=== PATIENT | male | born 1945 | race African-American/Black ===

== ENCOUNTER 2017-06-20 01:27 | Emergency (ER) | payer MEDICARE, OTHER ==
[2017-06-20 01:40] VITALS: BP 174/74; PULSE 72; RESP 16; O2SAT 98
[2017-06-20] MEDS ORDERED: HYDR-3799 PO (01:49)
[2017-06-20] MEDS ORDERED: ALPR0.25 PO (01:49)
[2017-06-20] MEDS ORDERED: METF500T PO (01:49)
[2017-06-20] MEDS ORDERED: HALD50IN IM (01:49)
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
[2017-06-20 03:08] LABS: AUTOMATED NEUTROPHIL # 5.6 TH/MM3 (1.8-7.7); BASOPHIL % 0.6 % (0.0-2.0); EOSINOPHIL # 0.1 TH/MM3 (0-0.4); EOSINOPHIL % 1.8 % (0.0-4.0); HEMATOCRIT 33.9 % (39.0-51.0); HEMO FLAGS DIFF FINAL; LYMPH % 22.8 % (9.0-44.0); LYMPHOCYTE # 1.9 TH/MM3 (1.0-4.8); MEAN CELL VOLUME 75.4 FL (80.0-100.0); MEAN CORPUSCULAR HEMOGLOBIN 24.3 PG (27.0-34.0); MEAN CORPUSCULAR HGB CONC 32.2 % (32.0-36.0); NEUT % 66.8 % (16.0-70.0); PLATELET COUNT 242 TH/MM3 (150-450); RED BLOOD COUNT 4.49 MIL/MM3 (4.50-5.90); RED CELL DISTRIBUTION WIDTH 16.7 % (11.6-17.2); WHITE BLOOD COUNT 8.3 TH/MM3 (4.0-11.0)
[2017-06-20 03:14] LABS: ALT (GPT) 23 U/L (12-78); ANION GAP 6 MEQ/L (5-15); AST (GOT) 17 U/L (15-37); BICARBONATE 27.3 MEQ/L (21.0-32.0); BLOOD UREA NITROGEN 17 MG/DL (7-18); CHLORIDE 102 MEQ/L (98-107); GLOMERULAR FILTRATION RATE 61 ML/MIN (>89); POTASSIUM 3.9 MEQ/L (3.5-5.1); SODIUM (NA) 135 MEQ/L (136-145)
[2017-06-20 03:16] LABS: ALKALINE PHOSPHATASE 83 U/L (45-117); TOTAL BILIRUBIN ADULT 0.5 MG/DL (0.2-1.0)
[2017-06-20 03:27] LABS: PROTHROMBIN TIME - PATIENT 11.4 SEC (9.8-11.6)
[2017-06-20 06:03] VITALS: BP 168/79; PULSE 67; RESP 16; O2SAT 100
[2017-06-20 06:27] LABS: BLOOD, URINE NEG (NEG); COMMENT (UR) CULT NOT INDICATED; CULTURE IF INDICATED CULT NOT INDICATED; GLUCOSE,URINE NEG (NEG); HYALINE CAST, URINE 1 /lpf (RARE); KETONE, URINE NEG (NEG); MUCUS URINE FEW /lpf (OCC); NITRITE,URINE NEG (NEG); SQUAMOUS EPITHELIAL CELL URINE <1 /hpf (0-5); URINE COLOR YELLOW (YELLW/STRAW)
[2017-06-20 08:10] VITALS: BP 163/90; PULSE 60; RESP 20; O2SAT 100
[2017-06-20] MEDS: metFORMIN HCL 500 MG TAB PO SCH ×2 (10:08→18:00)
[2017-06-20] MEDS: hydrALAZINE HCL 25 MG TAB PO SCH ×3 (10:08→22:00)
[2017-06-20 14:07] VITALS: BP 153/62; PULSE 87; RESP 18; O2SAT 97
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
[2017-06-20 16:42] VITALS: BP 144/64; PULSE 89; RESP 16; O2SAT 98
[2017-06-21] MEDS ORDERED: LORazepam 2 MG/ML VIAL IM ONE
[2017-06-21 05:23] VITALS: BP 159/72; PULSE 83; RESP 16; O2SAT 97
[2017-06-21] MEDS: metFORMIN HCL 500 MG TAB PO SCH ×2 (09:00→18:00)
[2017-06-21] MEDS: hydrALAZINE HCL 25 MG TAB PO SCH (10:38)
[2017-06-21 13:30] VITALS: BP 159/89; PULSE 89; RESP 16; O2SAT 100
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
[2017-06-21 17:23] VITALS: BP 172/98; PULSE 82; RESP 16
--- NOTE | 2017-06-21 19:10 | PD ---
Physical Exam Date Seen by Provider: Jun 21, 2017 Time Seen by Provider: 19:09 Narrative Patient's Gipson act has been lifted by the psychiatrist. As per them most of his symptoms are from dementia. Currently awaiting for family to come and pick him up and take him back home. Data Data Last Documented VS Orders Orders Complete Blood Count With Diff (06/20/17 02:11) Comprehensive Metabolic Panel (06/20/17 02:11) Psych Screen (06/20/17 02:11) Drug Screen, Random Urine (06/20/17 02:11) Act Partial Throm Time (Ptt) (06/20/17 02:12) Prothrombin Time / Inr (Pt) (06/20/17 02:12) Urinalysis - C+S If Indicated (06/20/17 02:12) Hydralazine (Apresoline) (06/20/17 06:00) Metformin (Glucophage) (06/20/17 09:00) Diet 1999 Ada Cons Carb (06/20/17 Breakfast) Diet 1999 Ada Cons Carb (06/20/17 Lunch) Diet 1999 Ada Cons Carb (06/20/17 Dinner) Lorazepam Inj (Ativan Inj) (06/21/17 00:00) Labs Laboratory Tests Test 06/20/17 02:00 06/20/17 06:00 White Blood Count 8.3 TH/MM3 Red Blood Count 4.49 MIL/MM3 Hemoglobin 10.9 GM/DL Hematocrit 33.9 % Mean Corpuscular Volume 75.4 FL Mean Corpuscular Hemoglobin 24.3 PG Mean Corpuscular Hemoglobin Concent 32.2 % Red Cell Distribution Width 16.7 % Platelet Count 242 TH/MM3 Mean Platelet Volume 9.1 FL Neutrophils (%) (Auto) 66.8 % Lymphocytes (%) (Auto) 22.8 % Monocytes (%) (Auto) 8.0 % Eosinophils (%) (Auto) 1.8 % Basophils (%) (Auto) 0.6 % Neutrophils # (Auto) 5.6 TH/MM3 Lymphocytes # (Auto) 1.9 TH/MM3 Monocytes # (Auto) 0.7 TH/MM3 Eosinophils # (Auto) 0.1 TH/MM3 Basophils # (Auto) 0.0 TH/MM3 CBC Comment DIFF FINAL Differential Comment Prothrombin Time 11.4 SEC Prothromb Time International Ratio 1.0 RATIO Activated Partial Thromboplast Time 25.0 SEC Blood Urea Nitrogen 17 MG/DL Creatinine 1.17 MG/DL Random Glucose 126 MG/DL Total Protein 9.3 GM/DL Albumin 3.7 GM/DL Calcium Level 9.4 MG/DL Alkaline Phosphatase 83 U/L Aspartate Amino Transf (AST/SGOT) 17 U/L Alanine Aminotransferase (ALT/SGPT) 23 U/L Total Bilirubin 0.5 MG/DL Sodium Level 135 MEQ/L Potassium Level 3.9 MEQ/L Chloride Level 102 MEQ/L Carbon Dioxide Level 27.3 MEQ/L Anion Gap 6 MEQ/L Estimat Glomerular Filtration Rate 61 ML/MIN Urine Color YELLOW Urine Turbidity CLEAR Urine pH 6.0 Urine Specific [place] 1.021 Urine Protein 100 mg/dL Urine Glucose (UA) NEG mg/dL Urine Ketones NEG mg/dL Urine Occult Blood NEG Urine Nitrite NEG Urine Bilirubin NEG Urine Urobilinogen LESS THAN 2.0 MG/DL Urine Leukocyte Esterase NEG Urine RBC LESS THAN 1 /hpf Urine WBC 1 /hpf Urine Squamous Epithelial Cells <1 /hpf Urine Hyaline Casts 1 /lpf Urine Mucus FEW /lpf Microscopic Urinalysis Comment CULT NOT INDICATED Urine Opiates Screen NEG Urine Barbiturates Screen NEG Urine Amphetamines Screen NEG Urine Benzodiazepines Screen NEG Urine Cocaine Screen NEG Urine Cannabinoids Screen NEG MDM Supervised Visit with TONI: No Diagnosis Primary Impression: 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 Return to the ER in case of any other concerns. Disposition: 01 DISCHARGE HOME Condition: Stable Alireza Alberto MD Jun 21, 2017 19:09
== END 2017-06-22 01:00 | disposition home or self-care (01) ==
LOC: NEPC 01:27
DX: F63.81 Intermittent explosive disorder (principal); F01.51 Vascular dementia, unspecified severity, with behavioral disturbance; I10 Essential (primary) hypertension; I35.0 Nonrheumatic aortic (valve) stenosis; E78.5 Hyperlipidemia, unspecified; E11.9 Type 2 diabetes mellitus without complications; Z79.84 Long term (current) use of oral hypoglycemic drugs; Z79.899 Other long term (current) drug therapy
CPT/HCPCS: 80053; 80307; 81001; 85025; 85610; 85730; 99283

== ENCOUNTER 2017-11-11 15:11 | Inpatient (IN) | payer OTHER, MEDICARE ==
[~2017-11-11] VITALS: Ht 185.4 cm; Wt 70.8 kg
[~2017-11-11 15:11] MED LIST: ALPR0.25 PO; HALD50IN IM; HYDR-3799 PO; METF500T PO
[2017-11-11 15:28] VITALS: BP 175/74; PULSE 59; RESP 18; TEMP 97.8; O2SAT 96
[2017-11-11 17:11] LABS: BASOPHIL % 0.6 % (0.0-2.0); EOSINOPHIL # 0.1 TH/MM3 (0-0.4); EOSINOPHIL % 0.9 % (0.0-4.0); HEMATOCRIT 36.7 % (39.0-51.0); HEMOGLOBIN 11.9 GM/DL (13.0-17.0); LYMPH % 32.9 % (9.0-44.0); LYMPHOCYTE # 2.2 TH/MM3 (1.0-4.8); MEAN CELL VOLUME 74.7 FL (80.0-100.0); MEAN CORPUSCULAR HEMOGLOBIN 24.2 PG (27.0-34.0); MEAN CORPUSCULAR HGB CONC 32.4 % (32.0-36.0); MEAN PLATELET VOLUME 9.4 FL (7.0-11.0); MONO % 6.8 % (0.0-8.0); MONOCYTE # 0.5 TH/MM3 (0-0.9); NEUT % 58.8 % (16.0-70.0); PLATELET COUNT 178 TH/MM3 (150-450); RED BLOOD COUNT 4.91 MIL/MM3 (4.50-5.90); RED CELL DISTRIBUTION WIDTH 16.5 % (11.6-17.2); WHITE BLOOD COUNT 6.8 TH/MM3 (4.0-11.0)
[2017-11-11 17:22] LABS: ALBUMIN 3.9 GM/DL (3.4-5.0); ALT (GPT) 12 U/L (12-78); AST (GOT) 15 U/L (15-37); BICARBONATE 21.8 MEQ/L (21.0-32.0); BLOOD UREA NITROGEN 17 MG/DL (7-18); CALCIUM 9.2 MG/DL (8.5-10.1); CHLORIDE 109 MEQ/L (98-107); CREATININE 1.02 MG/DL (0.60-1.30); GLOMERULAR FILTRATION RATE 87 ML/MIN (>89); GLUCOSE,RANDOM 90 MG/DL (74-106); SODIUM (NA) 138 MEQ/L (136-145)
[2017-11-11 17:25] LABS: ALKALINE PHOSPHATASE 72 U/L (45-117); TOTAL BILIRUBIN ADULT 0.6 MG/DL (0.2-1.0); TOTAL PROTEIN 8.7 GM/DL (6.4-8.2)
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
[2017-11-11 19:26] VITALS: BP 145/65; PULSE 61; RESP 16; O2SAT 98
[2017-11-11] MEDS ORDERED: LORazepam 1 MG TAB PO ONE (20:15)
[2017-11-11] MEDS ORDERED: HALOPERIDOL LACTATE 5 MG/ML AMP IM ONE (20:30)
[2017-11-11] MEDS ORDERED: LORazepam 2 MG/ML VIAL IM ONE (20:30)
[2017-11-11 20:50] VITALS: BP 149/68; PULSE 60; RESP 16; O2SAT 98
[2017-11-11 21:15] LABS: BACTERIA, URINE RARE /hpf; BILIRUBIN, URINE NEG (NEG); BLOOD, URINE NEG (NEG); GLUCOSE,URINE NEG (NEG); KETONE, URINE NEG (NEG); MUCUS URINE FEW /lpf (OCC); NITRITE,URINE NEG (NEG); PH, URINE 5.5 (5.0-8.5); SQUAMOUS EPITHELIAL CELL URINE <1 /hpf (0-5); URINE COLOR YELLOW (YELLW/STRAW); URINE LEUKOCYTE ESTERASE NEG (NEG)
[2017-11-12] MEDS ORDERED: OLANZapine IM 10 MG VIAL IM ONE (01:30)
[2017-11-12] MEDS ORDERED: LORazepam 2 MG/ML VIAL IM ONE (01:30)
[2017-11-12 02:18] VITALS: RESP 18
[2017-11-12 06:36] VITALS: BP 185/82; PULSE 83; RESP 17
[2017-11-12 10:30] VITALS: BP 187/81; PULSE 79; RESP 18
[2017-11-12] MEDS ORDERED: NICOTINE 21 MG/24 HR PATCH T-DERMAL PRN (17:00)
[2017-11-12] MEDS ORDERED: ACETAMINOPHEN 325 MG TAB PO PRN (17:00)
[2017-11-12] MEDS ORDERED: MAGNESIUM HYDROXIDE SUSP 30 ML CUP PO PRN (17:00)
[2017-11-12] MEDS ORDERED: ALUMINUM/MAGNESIUM/SIMETH 30 ML CUP PO PRN (17:00)
[2017-11-12 18:19] VITALS: BP 145/65; PULSE 80; RESP 16; TEMP 98.7; O2SAT 97
[2017-11-12 19:15] VITALS: BP 164/92; PULSE 81; RESP 22; TEMP 98.2
[2017-11-13 06:04] VITALS: BP 163/72; PULSE 71; RESP 18; TEMP 98.4; O2SAT 99
[2017-11-13] MEDS: REMOVE OLD PATCH T-DERMAL SCH (09:00)
[2017-11-13] MEDS ORDERED: LISINOPRIL 5 MG TAB PO ONE (09:30)
[2017-11-13] MEDS ORDERED: DEXTROSE 50% IN WATER 50 ML VIAL(D50) IV PUSH PRN (09:30)
[2017-11-13] MEDS ORDERED: GLUCAGON 1 MG/ML VIAL OTHER PRN (09:30)
--- NOTE | 2017-11-13 11:44 | PD.CONS ---
HPI Service [facility] Hospitalists Consult Requested By Psychiatric services Reason for Consult Medical management Primary Care Physician Unknown Diagnoses: History of Present Illness Written by Leanna Puente, acting as scribe for Dr. Mendenhall on 11/13/17 at 11: 24. This is a 72-year-old [place] male with severe dementia, hypertension, type 2 diabetes, dyslipidemia and severe aortic stenosis who was admitted to [facility] under Gipson act due to suicidal ideation and has since been admitted to the inpatient psychiatric unit. Hospitalist services have been consulted for medical management. Patient seen and examined. Due to patient's severe dementia unable to obtain any reliable history from the patient directly and therefore history is obtained from review of the electronic medical record. Patient sitting in the day room in the inpatient psychiatric unit. Appears somewhat lethargic. He is not able to follow simple commands. Review of Systems Attempted 10 point review of systems but unable to complete secondary to patient 's cognitive impairment Past Family Social History Allergies: Coded Allergies: No Known Allergies (Unverified Allergy, Unknown, 11/12/17) Past Medical History Per review of electronic medical record: Hypertension Dementia Severe aortic stenosis Dyslipidemia Type 2 diabetes Past Surgical History Unable to obtain previous surgical history Reported Medications Reported medications unattainable Active Ordered Medications Current Medications Medications (Trade) Dose Ordered Sig/Sumeet Route Start Time Stop Time Status Last Admin (Tylenol) 650 mg Q4H PRN PO 11/12/17 17:00 (Milk Of Magnesia Liq) 30 ml DAILY PRN PO 11/12/17 17:00 (Mag-Al Plus Susp Liq) 30 ml Q6H PRN PO 11/12/17 17:00 (Habitrol 21 Mg Patch.24 Hr) 1 patch DAILY PRN T-DERMAL 11/12/17 17:00 Miscellaneous Information 1 DAILY T-DERMAL 11/13/17 09:00 (Benadryl) 50 mg HS PRN PO 11/12/17 23:45 (D50w (Vial) Inj) 50 ml UNSCH PRN IV PUSH 11/13/17 09:30 (Glucagon Inj) 1 mg UNSCH PRN OTHER 11/13/17 09:30 (NovoLOG SUPPLEMENTAL SCALE) 1 ACHS SLIDING SCALE SQ 11/13/17 12:00 (Prinivil) 5 mg DAILY PO 11/14/17 09:00 Family History Unable to obtain Social History No tobacco or alcohol use per review of medical record Physical Exam Vital Signs Vital Signs Date Time Temp Pulse Resp B/P (MAP) Pulse Ox O2 Delivery O2 Flow Rate FiO2 11/13/17 06:04 98.4 71 18 163/72 (102) 99 11/12/17 19:15 98.2 81 22 164/92 (116) 18 18:19 98.7 80 16 145/65 (91) 97 Room Air Physical Exam GENERAL: This is a well-nourished, well-developed elderly [place] male patient , in no apparent distress. Sitting up in chair in the inpatient psychiatric dayroom. Somewhat lethargic. Confused. Limited exam due to patient's dementia and inability to follow simple commands. SKIN: Cool and dry. Few areas of healing scabs, right forearm. HEAD: Atraumatic. Normocephalic. No temporal or scalp tenderness. EYES: Pupils equal round and reactive. No scleral icterus. No injection or drainage. ENT: Nose without bleeding or purulent drainage. Airway patent. NECK: Trachea midline. CARDIOVASCULAR: Regular rate and rhythm. Positive for 4/6 systolic ejection murmur. RESPIRATORY: Clear to auscultation. Breath sounds equal bilaterally. No wheezes , rales, or rhonchi. GASTROINTESTINAL: Abdomen soft, non-tender, nondistended. No hepato-splenomegaly , or palpable masses. No guarding. MUSCULOSKELETAL: Extremities without clubbing, cyanosis, or edema. No joint tenderness, effusion, or edema noted. NEUROLOGICAL: Lethargic. Unable to follow simple commands. Able to move all extremities spontaneously. Minimal, nonsensical verbalization. Result Diagram: 11/11/17 1630 11/11/17 1630 Assessment and Plan Assessment and Plan 72-year-old [facility] male with severe dementia, hypertension, type 2 diabetes, dyslipidemia and severe aortic stenosis who was admitted to [facility] under Gipson act due to suicidal ideation and has since been admitted to the inpatient psychiatric unit. Hospitalist services have been consulted for medical management. //Severe dementia //Suicidal ideation, under Gipson act -UDS positive for benzodiazepines -Management per psychiatric team //Hypertension -Not well controlled -Lisinopril 5mg daily started for now -awaiting update of patient's medical reconciliation -Monitor BP and adjust treatment accordingly //Aortic stenosis, chronic -Maintain tight blood pressure control with afterload reduction //DM, type 2 -Change to diabetic, heart healthy diet -Accu-Cheks and insulin sliding scale -We will continue to monitor blood sugars and adjust treatment as appropriate //Anemia, hypochromic, microcytic -No known baseline -Obtain iron studies, Hemoccult stool study ordered -Monitor CBC as indicated DVT prophylaxis -Patient is ambulatory Thank you very kindly for this consultation. We will continue to follow along with you. Discussed Condition With This note was transcribed by marisa Puente. I, Dr. Miles Mendenhall personally performed the history, physical exam, and medical decision making; and confirmed the accuracy of the information in the transcribed note. Authenticated by Dr. Miles Mendenhall on 11/14/17 at 13:08. Leanna Puente Nov 13, 2017 11:44 Miles Mendenhall MD Nov 14, 2017 13:08
[2017-11-13] MEDS: INSULIN ASPART SUPPLEMENTAL SCALE SQ SCH ×3 (11:59→19:53)
--- NOTE | 2017-11-13 13:28 | EKG ---
Date Performed: 11/12/2017 Time Performed: 20:46:49 PTAGE: 72 years EKG: ECTOPIC ATRIAL RHYTHM POSSIBLE RIGHT VENTRICULAR CONDUCTION DELAY LEFT ANTERIOR FASCICULAR BLOCK LEFT VENTRICULAR HYPERTROPHY AND ST-T CHANGE POSSIBLE SEPTAL MYOCARDIAL INFARCTION , OF INDETER MINATE AGE ABNORMAL ECG NO PREVIOUS TRACING DOCTOR: Stephon Jensen Interpretating Date/Time 11/13/2017 13:25:11
[2017-11-13] MEDS ORDERED: MAGNESIUM HYDROXIDE SUSP 30 ML CUP PO PRN (17:00)
[2017-11-13] MEDS ORDERED: LORazepam 0.5 MG TAB PO PRN (17:00)
[2017-11-13] MEDS ORDERED: ALUMINUM/MAGNESIUM/SIMETH 30 ML CUP PO PRN (17:00)
[2017-11-13] MEDS ORDERED: ACETAMINOPHEN 325 MG TAB PO PRN (17:00)
--- NOTE | 2017-11-13 17:14 | HHI.HP ---
Provisional Diagnosis Admission Date Nov 12, 2017 at 16:53 [place]. Dimension other diseases with behavioral disturbance, Alzheimer's disease late onset Certification of Person's Competence To Provide Express and Informed Consent I have personally examined Morgan Conn , a person being served at [facility] on, Nov 13, 2017 17:02. Express and informed consent means consent voluntarily given in writing, by a competent person, after sufficient explanation and disclosure of the subject matter involved to enable the person to make a knowing and willful decision without any element of force, fraud, deceit, duress, or other form of constraint or coercion. This person is 18 years of age or older, is not now known to be incompetent to consent to treatment with a guardian advocate, and does not have a health care surrogate or proxy currently making medical treatment decisions. I have found this person to be one of the following: [] Competent to provide express and informed consent, as defined above, for voluntary admission to this facility and is competent to provide express and informed consent for treatment. He/she has the consistent capacity to make well reasoned, willful, and knowing decisions concerning his or her medical or mental health treatment. The person fully and consistently understands the purpose of the admission for examination/placement and is fully capable of personally exercising all rights assured under [place]] Incompetent to provide express and informed consent to voluntary admission , and this is incompetent to provide express and informed consent to treatment. The person must be transferred to involuntary status and a petition for a guardian advocate filed with the Circuit Court. [] Refusing to provide express and informed consent to voluntary admission but is competent to provide express and informed consent for treatment. The person must be discharged or transferred to involuntary status. Form shall be completed within 24 hours of a person's arrival at the receiving facility and filed in the clinical record of each person: 1. Admitted on a voluntary basis 2. Permitted to provide express and informed consent to his/her own treatment 3. Allowed to transfer from involuntary to voluntary status 4. Prior to permitting a person to consent to his or her own treatment after having been previously found incompetent to consent to treatment. History of Present Illness Capacity: Lacks Capacity HPI Patient is a 72-year-old [place] male who comes her under Gipson act but [facility] office stated 11/11/17 the document reviewed and agreed with essentially stated patient has a dementia has been increasingly aggressive angry and threatening towards his son. That he suffered from a severe stroke in the past year to standing his medication was self if was not taken back to job make up patient seen screened in the ED urine toxicology positive for benzodiazepines. Patient is this limited 2500. He became out of control necessitating ETO's overlaid last night into this morning.Transfer from Timeout here 2700. At the present time patient laying quietly the observation room is diffusely confused and all 4 spheres. He does speak in broken Cook Islander and Divehi. He is in no acute distress. At the present time patient does meet criteria for acute inpatient psychiatric hospitalization. I'll do first opinion request second opinion. I feel does not have capacity thus I'll ask for healthcare surrogate and guardian advocate. Related contact patient's son to get further information and approval for treatment. We will the hospitalist also consult was also have a PT consultation Review of Systems ROS Limitations: Clinical Condition, Altered Mental Status Past Psych History Psychological trauma history Unknown at this time Violence risk - others (6 mos) Patient threatening toward son Violence risk - self (6 mos) Patient made suicidal statements to some Substance Abuse History Drugs/Alcohol past 12 months Unknown at this time Past Family Social History Coded Allergies: No Known Allergies (Unverified Allergy, Unknown, 11/12/17) Discontinued Reported Medications Haloperidol Decanoate Inj (Haldol Decanoate Inj) 50 Mg/Ml Inj, IM for Schizophrenia, #1 VIAL 0 Refills 06/20/17 Alprazolam (Alprazolam) 0.25 Mg Tab, PO Q4H Y for ANXIETY, TAB 0 Refills 06/20/17 Metformin (Metformin) 500 Mg Tab, 500 MG PO BIDPC for Blood Sugar Management, # 60 TAB 0 Refills With meals 06/20/17 Hydralazine HCl (Hydralazine HCl) 25 Mg Tablet, 25 MG PO TID for Blood Pressure Management, #90 TAB 0 Refills 06/20/17 Current Medications Medications (Trade) Dose Ordered Sig/Sumeet Route Start Time Stop Time Status Last Admin (Tylenol) 650 mg Q4H PRN PO 11/12/17 17:00 (Milk Of Magnesia Liq) 30 ml DAILY PRN PO 11/12/17 17:00 (Mag-Al Plus Susp Liq) 30 ml Q6H PRN PO 11/12/17 17:00 (Habitrol 21 Mg Patch.24 Hr) 1 patch DAILY PRN T-DERMAL 11/12/17 17:00 Miscellaneous Information 1 DAILY T-DERMAL 11/13/17 09:00 (Benadryl) 50 mg HS PRN PO 11/12/17 23:45 (D50w (Vial) Inj) 50 ml UNSCH PRN IV PUSH 11/13/17 09:30 (Glucagon Inj) 1 mg UNSCH PRN OTHER 11/13/17 09:30 (NovoLOG SUPPLEMENTAL SCALE) 1 ACHS SLIDING SCALE SQ 11/13/17 12:00 (Prinivil) 5 mg DAILY PO 11/14/17 09:00 Family Psych History Unknown at this time due to patient's cognitive disability Social History It appears patient lives with family Patient's Strengths (min. 2) Patient verbal has supportive family Physical Exam Patient medically cleared ED at the present time patient resting quietly on mattress on the floor. He is in no respiratory distress. Patient does move all 4 extremities Vital Signs Vital Signs Date Time Temp Pulse Resp B/P (MAP) Pulse Ox O2 Delivery O2 Flow Rate FiO2 11/13/17 06:04 98.4 71 18 163/72 (102) 99 11/12/17 18:19 Room Air I/O 11/13/17 11/13/17 11/14/17 08:00 16:00 00:00 Intake Total 120 ml Balance 120 ml Mental Status Examination Appearance: Disheveled Consciousness: Alert Speech: Other (indecipherable) Language: Other Fund of Knowledge: Poor ([place]er/Divehi) Attention and Concentration: Other (very poor) Memory: Impaired Mood: Irritable Affect: Labile Thought Process & Associations: Disorganized Thought Content: Other (medically disorganized) Hallucination Type: Other (unable to ascertain due to cognitive deficit) Delusion Type: Other (unable to ascertain due to cognitive deficit) Suicidal Ideation: Yes (made statements to son) Suicidal Plan: No Suicidal Intention: No Homicidal Ideation: No Homicidal Plan: No Homicidal Intention: No Insight: Poor Judgment: Poor Mental Status Exam Remarks Mental status exam quite limited due to patient's cognitive deficits in language issues Assessment & Plan Problem List: (1) DEMENTIA IN OTH DISEASES CLASSD ELSWHR W BEHAVIORAL DISTURB ICD Codes: F02.81 - DEMENTIA IN OTH DISEASES CLASSD ELSWHR W BEHAVIORAL DISTURB (2) ALZHEIMER'S DISEASE WITH LATE ONSET ICD Codes: G30.1 - ALZHEIMER'S DISEASE WITH LATE ONSET Assessment & Plan Estimated LOS: days Tejas Bee MD Nov 13, 2017 17:14
[2017-11-14 05:52] VITALS: BP 164/74; PULSE 98; RESP 17; TEMP 97.9; O2SAT 98
[2017-11-14] MEDS: INSULIN ASPART SUPPLEMENTAL SCALE SQ SCH ×4 (08:00→20:14)
[2017-11-14] MEDS: LISINOPRIL 5 MG TAB PO SCH (08:33)
[2017-11-14] MEDS: REMOVE OLD PATCH T-DERMAL SCH (08:33)
[2017-11-14 11:16] LABS: AUTOMATED NEUTROPHIL # 6.1 TH/MM3 (1.8-7.7); BASOPHIL % 0.2 % (0.0-2.0); EOSINOPHIL % 0.2 % (0.0-4.0); HEMATOCRIT 32.5 % (39.0-51.0); HEMOGLOBIN 10.7 GM/DL (13.0-17.0); LYMPH % 11.3 % (9.0-44.0); LYMPHOCYTE # 0.8 TH/MM3 (1.0-4.8); MEAN CELL VOLUME 73.9 FL (80.0-100.0); MEAN CORPUSCULAR HEMOGLOBIN 24.4 PG (27.0-34.0); MEAN PLATELET VOLUME 9.1 FL (7.0-11.0); MONO % 4.9 % (0.0-8.0); MONOCYTE # 0.4 TH/MM3 (0-0.9); NEUT % 83.4 % (16.0-70.0); PLATELET COUNT 162 TH/MM3 (150-450); RED CELL DISTRIBUTION WIDTH 16.8 % (11.6-17.2); WHITE BLOOD COUNT 7.4 TH/MM3 (4.0-11.0)
[2017-11-14 11:42] LABS: BICARBONATE 26.6 MEQ/L (21.0-32.0); BLOOD UREA NITROGEN 12 MG/DL (7-18); CALCIUM 9.4 MG/DL (8.5-10.1); CHLORIDE 104 MEQ/L (98-107); CHOLESTEROL 231 MG/DL (120-200); CHOLESTEROL/ HDL RATIO 2.85 RATIO; CREATININE 1.09 MG/DL (0.60-1.30); GLOMERULAR FILTRATION RATE 80 ML/MIN (>89); GLUCOSE,RANDOM 215 MG/DL (74-106); HDL CHOLESTEROL 80.8 MG/DL (40.0-60.0); LDL CHOLESTEROL 142 MG/DL (0-99); SODIUM (NA) 138 MEQ/L (136-145); TRIGLYCERIDES 41 MG/DL (42-150)
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
[2017-11-14 13:52] LABS: HEMOGLOBIN A1C 5.5 % (4.3-6.0)
[2017-11-14] MEDS: hydrALAZINE HCL 25 MG TAB PO SCH ×2 (14:00→20:14)
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
[2017-11-14 15:12] LABS: % SATURATION IRON PROFILE 12.5 % (20-50); IRON (FE) 31 MCG/DL (65-175); TOTAL IRON BINDING CAPACITY 248 MCG/DL (250-450)
[2017-11-14 16:12] LABS: FERRITIN 289 NG/ML (26-388); FOLATE 13.6 NG/ML (3.1-17.5)
[2017-11-14 18:52] VITALS: BP 168/77; PULSE 90; RESP 17; TEMP 98; O2SAT 99
[2017-11-15] MEDS: hydrALAZINE HCL 25 MG TAB PO SCH ×4 (06:00→21:05)
[2017-11-15 06:02] VITALS: BP 185/76; PULSE 77; RESP 18; TEMP 97.5; O2SAT 98
[2017-11-15] MEDS: INSULIN ASPART SUPPLEMENTAL SCALE SQ SCH ×4 (08:00→20:53)
[2017-11-15] MEDS: LISINOPRIL 5 MG TAB PO SCH (08:34)
[2017-11-15] MEDS: ATORVASTATIN 40 MG TAB PO SCH (08:34)
[2017-11-15] MEDS: ASPIRIN EC 81 MG TABEC PO SCH (08:34)
[2017-11-15] MEDS: REMOVE OLD PATCH T-DERMAL SCH (08:34)
[2017-11-15 10:38] VITALS: BP 142/65; PULSE 65; RESP 18
--- NOTE | 2017-11-15 14:12 | HHI.PR ---
Subjective Remarks Follow-up of patient with severe dementia, hypertension, ALS, diabetes. Patient seen and examined. Patient looks much better today. Appears to be much more alert. Still very difficult to understand. Discussed with nursing staff, no acute issues noted. Patient ate well. Objective Vitals Vital Signs Date Time Temp Pulse Resp B/P (MAP) Pulse Ox O2 Delivery O2 Flow Rate FiO2 11/15/17 10:38 65 18 142/65 (90) 11/15/17 06:02 97.5 77 18 185/76 (112) 98 11/14/17 18:52 98.0 90 17 168/77 (107) 99 I/O 11/14/17 11/14/17 11/14/17 11/15/17 11/15/17 11/15/17 07:00 15:00 23:00 07:00 15:00 23:00 Intake Total 0 ml 360 ml 360 ml Balance 0 ml 360 ml 360 ml Intake Oral 0 ml 360 ml 360 ml # Voids 1 Result Diagram: 11/14/17 1040 11/14/17 1030 Objective Remarks GENERAL: This is a well-nourished, well-developed elderly [facility] male patient , in no apparent distress. Sitting up in chair in music room. Appears much more alert today. SKIN: Cool and dry. Few areas of healing scabs, right forearm. HEAD: Atraumatic. Normocephalic. EYES: Pupils equal round and reactive. No scleral icterus. No injection or drainage. ENT: Nose without bleeding or purulent drainage. Airway patent. NECK: Trachea midline. CARDIOVASCULAR: Regular rate and rhythm. Positive for 4/6 systolic ejection murmur. RESPIRATORY: Clear to auscultation. Breath sounds equal bilaterally. No wheezes , rales, or rhonchi. GASTROINTESTINAL: Abdomen soft, non-tender, nondistended. MUSCULOSKELETAL: Extremities without clubbing, cyanosis, or edema. Slight tremor noted in bilateral hands. NEUROLOGICAL: Calm. Able to follow few simple commands. Able to move all extremities spontaneously. Minimal, nonsensical verbalization. Medications and IVs Current Medications Medications (Trade) Dose Ordered Sig/Sumeet Route Start Time Stop Time Status Last Admin (Habitrol 21 Mg Patch.24 Hr) 1 patch DAILY PRN T-DERMAL 11/12/17 17:00 Miscellaneous Information 1 DAILY T-DERMAL 11/13/17 09:00 (Benadryl) 50 mg HS PRN PO 11/12/17 23:45 (D50w (Vial) Inj) 50 ml UNSCH PRN IV PUSH 11/13/17 09:30 (Glucagon Inj) 1 mg UNSCH PRN OTHER 11/13/17 09:30 (NovoLOG SUPPLEMENTAL SCALE) 1 ACHS SLIDING SCALE SQ 11/13/17 12:00 11/14/17 20:14 (Prinivil) 5 mg DAILY PO 11/14/17 09:00 11/15/17 08:34 (Ativan) 0.5 mg Q12H PRN PO 11/13/17 17:00 Future Hold (Ativan Inj) 0.5 mg Q12H PRN IM 11/13/17 17:00 Future Hold (Tylenol) 650 mg Q4H PRN PO 11/13/17 17:00 (Milk Of Magnesia Liq) 30 ml DAILY PRN PO 11/13/17 17:00 (Mag-Al Plus Susp Liq) 30 ml Q6H PRN PO 11/13/17 17:00 (Lipitor) 40 mg DAILY PO 11/15/17 09:00 11/15/17 08:34 (Ecotrin Ec) 81 mg DAILY PO 11/15/17 09:00 11/15/17 08:34 (Apresoline) 25 mg Q8HR PO 11/14/17 14:00 11/14/17 20:14 A/P Assessment and Plan 72-year-old [facility] male with severe dementia, hypertension, type 2 diabetes, dyslipidemia and severe aortic stenosis who was admitted to [facility] under [place] due to suicidal ideation and has since been admitted to the inpatient psychiatric unit. Hospitalist services have been consulted for medical management. //Severe dementia //Suicidal ideation, under [place] -UDS positive for benzodiazepines -Management per psychiatric team //Hypertension, not well controlled, patient refusing medication -continue on Lisinopril 5mg daily -Continue on home dose of Hydralazine 25mg po TID -Monitor BP and adjust treatment accordingly //Aortic stenosis, chronic -Maintain tight blood pressure control with afterload reduction //DM, type 2 -Continue on diabetic, heart healthy diet. Blood sugars well controlled. -Accu-Cheks and insulin sliding scale -We will continue to monitor blood sugar trend, if blood sugars remain well controlled we will discontinue Accu-Cheks and insulin sliding scale. //Anemia, hypochromic, microcytic -No known baseline, hemoglobin with slight trend downwards -Iron studies not indicative of VASILE. -Monitor CBC as indicated //Dyslipidemia -ASCVD 10yr risk 49% -LFTs WNL -started on Lipitor 40mg daily, continue -Patient will need to have LFTs and lipid profile rechecked as outpatient by PCP DVT prophylaxis -Patient is ambulatory Leanna Puente Nov 15, 2017 14:12
--- NOTE | 2017-11-15 16:18 | HHI.PYPN ---
Subjective Remarks Patient seen in day room with nurse know and medical student Roger, chart review , patient discussed with nurse. Patient sitting calmly in day room continues diffusely confused and disoriented. No behavior problems at the present time. We'll add Seroquel to regimen and afternoon and evening Review of Systems Except as stated in HPI: all other systems reviewed are Neg Mental Status Examination Appearance: Disheveled Consciousness: Alert Orientation: Person Speech: Other (indecipherable) Language: Other Fund of Knowledge: Poor (Salvadorean/Setswana) Attention and Concentration: Other (very poor) Memory: Impaired Mood: Irritable Affect: Labile Thought Process & Associations: Disorganized Thought Content: Other (medically disorganized) Hallucination Type: Other (unable to ascertain due to cognitive deficit) Delusion Type: Other (unable to ascertain due to cognitive deficit) Suicidal Ideation: No Suicidal Plan: No Suicidal Intention: No Homicidal Ideation: No Homicidal Plan: No Homicidal Intention: No Insight: Poor Judgment: Poor Results Vitals/IOs Vital Signs Date Time Temp Pulse Resp B/P (MAP) Pulse Ox O2 Delivery O2 Flow Rate FiO2 11/15/17 10:38 65 18 142/65 (90) 11/15/17 06:02 97.5 98 11/12/17 18:19 Room Air Assessment & Plan Problem List: (1) DEMENTIA IN OTH DISEASES CLASSD ELSWHR W BEHAVIORAL DISTURB ICD Codes: F02.81 - DEMENTIA IN OTH DISEASES CLASSD ELSWHR W BEHAVIORAL DISTURB (2) ALZHEIMER'S DISEASE WITH LATE ONSET ICD Codes: G30.1 - ALZHEIMER'S DISEASE WITH LATE ONSET Assessment & Plan Estimated LOS: days patient continues confused and demented, compliant medications, at this time no significant behavioral problems. Lead Cristhian to the regimen and afternoon and evening Justification for Cont. Inpt. At this time patient decompensated placed a lower level of care Discharge Planning Placement needs to be determined Tejas Bee MD Nov 15, 2017 16:18
[2017-11-15] MEDS: QUEtiapine FUMARATE 25 MG TAB PO SCH ×3 (17:00→21:17)
[2017-11-15 21:00] VITALS: BP 180/70; PULSE 72
[2017-11-15 23:15] VITALS: BP 139/64; PULSE 72
[2017-11-16 05:42] VITALS: BP 175/75; PULSE 72; RESP 16; TEMP 96.5; O2SAT 100
[2017-11-16] MEDS: hydrALAZINE HCL 25 MG TAB PO SCH ×3 (06:00→21:36)
[2017-11-16] MEDS: INSULIN ASPART SUPPLEMENTAL SCALE SQ SCH ×4 (08:00→21:00)
[2017-11-16] MEDS: LISINOPRIL 5 MG TAB PO SCH (08:05)
[2017-11-16] MEDS: ATORVASTATIN 40 MG TAB PO SCH (08:05)
[2017-11-16] MEDS: ASPIRIN EC 81 MG TABEC PO SCH (08:05)
[2017-11-16] MEDS: REMOVE OLD PATCH T-DERMAL SCH (09:00)
[2017-11-16] MEDS: QUEtiapine FUMARATE 25 MG TAB PO SCH ×3 (12:00→21:36)
--- NOTE | 2017-11-16 15:32 | HHI.PYPN ---
Subjective Remarks Patient seen in day room with nurse no other medical student arc, chart review, patient discussed with nurse. Patient sitting calmly in day room the been no behavior problems recently, patient compliant with his medications. Patient continues diffusely confused disoriented. Though he is a pleasant with me. For now continue treatment Review of Systems Except as stated in HPI: all other systems reviewed are Neg Mental Status Examination Appearance: Disheveled Consciousness: Alert Orientation: Person Speech: Other (indecipherable) Language: Other Fund of Knowledge: Poor (Lao/Indonesian) Attention and Concentration: Other (very poor) Memory: Impaired Mood: Irritable Affect: Labile Thought Process & Associations: Disorganized Thought Content: Other (medically disorganized) Hallucination Type: Other (unable to ascertain due to cognitive deficit) Delusion Type: Other (unable to ascertain due to cognitive deficit) Suicidal Ideation: No Suicidal Plan: No Suicidal Intention: No Homicidal Ideation: No Homicidal Plan: No Homicidal Intention: No Insight: Poor Judgment: Poor Results Vitals/IOs Vital Signs Date Time Temp Pulse Resp B/P (MAP) Pulse Ox O2 Delivery O2 Flow Rate FiO2 11/16/17 05:42 96.5 72 16 175/75 (108) 100 11/12/17 18:19 Room Air Assessment & Plan Problem List: (1) DEMENTIA IN OTH DISEASES CLASSD ELSWHR W BEHAVIORAL DISTURB ICD Codes: F02.81 - DEMENTIA IN OTH DISEASES CLASSD ELSWHR W BEHAVIORAL DISTURB (2) ALZHEIMER'S DISEASE WITH LATE ONSET ICD Codes: G30.1 - ALZHEIMER'S DISEASE WITH LATE ONSET Assessment & Plan Estimated LOS: days patient continues confused demented, [place] behavioral problems recently. Compliant medications Justification for Cont. Inpt. At the present time patient with decompensated placed a lower level of care Discharge Planning To be determined Tejas Bee MD Nov 16, 2017 15:31
[2017-11-16 17:48] VITALS: BP 132/63; PULSE 66; RESP 16; TEMP 96.9; O2SAT 97
[2017-11-17] MEDS: diphenhydrAMINE HCL 50 MG CAP PO PRN (00:23)
[2017-11-17] MEDS: hydrALAZINE HCL 25 MG TAB PO SCH ×4 (00:25→20:16)
[2017-11-17 05:28] VITALS: BP 177/74; PULSE 71; RESP 20; TEMP 97.1; O2SAT 98
[2017-11-17] MEDS: INSULIN ASPART SUPPLEMENTAL SCALE SQ SCH ×4 (08:00→20:15)
[2017-11-17] MEDS: ATORVASTATIN 40 MG TAB PO SCH ×3 (08:31→09:00)
[2017-11-17] MEDS: ASPIRIN EC 81 MG TABEC PO SCH ×3 (08:31→09:00)
[2017-11-17] MEDS: LISINOPRIL 5 MG TAB PO SCH ×3 (08:31→09:00)
[2017-11-17] MEDS: REMOVE OLD PATCH T-DERMAL SCH (09:00)
[2017-11-17] MEDS: QUEtiapine FUMARATE 25 MG TAB PO SCH ×4 (11:49→20:16)
[2017-11-17 15:17] VITALS: BP 146/67; PULSE 64; RESP 18; TEMP 97.4; O2SAT 96
[2017-11-17 15:18] VITALS: BP 146/67; PULSE 64; RESP 18; TEMP 97.4; O2SAT 96
--- NOTE | 2017-11-17 16:21 | HHI.PYPN ---
Subjective Remarks Patient seen in his room and floor staff, patient calm with me though continues diffusely confused and disoriented. Is been no significant behavioral problem Review of Systems Except as stated in HPI: all other systems reviewed are Neg Mental Status Examination Appearance: Disheveled Consciousness: Alert Orientation: Person Speech: Other (indecipherable) Language: Other Fund of Knowledge: Poor (Estonian/Portuguese) Attention and Concentration: Other (very poor) Memory: Impaired Mood: Irritable Affect: Labile Thought Process & Associations: Disorganized Thought Content: Other (medically disorganized) Hallucination Type: Other (unable to ascertain due to cognitive deficit) Delusion Type: Other (unable to ascertain due to cognitive deficit) Suicidal Ideation: No Suicidal Plan: No Suicidal Intention: No Homicidal Ideation: No Homicidal Plan: No Homicidal Intention: No Insight: Poor Judgment: Poor Results Vitals/IOs Vital Signs Date Time Temp Pulse Resp B/P (MAP) Pulse Ox O2 Delivery O2 Flow Rate FiO2 11/17/17 15:18 97.4 64 18 146/67 (93) 96 Assessment & Plan Problem List: (1) DEMENTIA IN OTH DISEASES CLASSD ELSWHR W BEHAVIORAL DISTURB ICD Codes: F02.81 - DEMENTIA IN OTH DISEASES CLASSD ELSWHR W BEHAVIORAL DISTURB (2) ALZHEIMER'S DISEASE WITH LATE ONSET ICD Codes: G30.1 - ALZHEIMER'S DISEASE WITH LATE ONSET Assessment & Plan Estimated LOS: days patient remains confused demented, but no significant behavioral problems, compliant medication Justification for Cont. Inpt. At this time patient would decompensated place to the lower level of care Discharge Planning To be determined Tejas Bee MD Nov 17, 2017 16:20
[2017-11-18 06:10] VITALS: BP 179/74; PULSE 72; RESP 18; TEMP 97.4; O2SAT 98
[2017-11-18] MEDS: INSULIN ASPART SUPPLEMENTAL SCALE SQ SCH ×4 (08:00→20:42)
[2017-11-18] MEDS: ASPIRIN EC 81 MG TABEC PO SCH (09:00)
[2017-11-18] MEDS: LISINOPRIL 5 MG TAB PO SCH (09:00)
[2017-11-18] MEDS: ATORVASTATIN 40 MG TAB PO SCH (09:00)
[2017-11-18] MEDS: REMOVE OLD PATCH T-DERMAL SCH (09:00)
[2017-11-18] MEDS: QUEtiapine FUMARATE 25 MG TAB PO SCH ×6 (12:00→20:32)
--- NOTE | 2017-11-18 13:55 | HHI.PYPN ---
Subjective Remarks [place] today retained by youth court judge patient's brother to be guardian advocate. Patient seen in day room continues somewhat irritable focusing on wishing to return [place]. He otherwise remains confused and demented. No other significant behavioral problems. At times need some encouragement for compliance with medication Review of Systems Except as stated in HPI: all other systems reviewed are Neg Mental Status Examination Appearance: Disheveled Consciousness: Alert Orientation: Person Speech: Other (indecipherable) Language: Other Fund of Knowledge: Poor (Tajik/Nepali) Attention and Concentration: Other (very poor) Memory: Impaired Mood: Irritable Affect: Labile Thought Process & Associations: Disorganized Thought Content: Other (medically disorganized) Hallucination Type: Other (unable to ascertain due to cognitive deficit) Delusion Type: Other (unable to ascertain due to cognitive deficit) Suicidal Ideation: No Suicidal Plan: No Suicidal Intention: No Homicidal Ideation: No Homicidal Plan: No Homicidal Intention: No Insight: Poor Judgment: Poor Results Vitals/IOs Vital Signs Date Time Temp Pulse Resp B/P (MAP) Pulse Ox O2 Delivery O2 Flow Rate FiO2 11/18/17 06:10 97.4 72 18 179/74 (109) 98 Intake and Output 11/18/17 11/18/17 11/19/17 08:00 16:00 00:00 Intake Total 480 ml Balance 480 ml Assessment & Plan Problem List: (1) DEMENTIA IN OTH DISEASES CLASSD ELSWHR W BEHAVIORAL DISTURB ICD Codes: F02.81 - DEMENTIA IN OTH DISEASES CLASSD ELSWHR W BEHAVIORAL DISTURB (2) ALZHEIMER'S DISEASE WITH LATE ONSET ICD Codes: G30.1 - ALZHEIMER'S DISEASE WITH LATE ONSET Assessment & Plan Estimated LOS: days patient remains confused demented at times somewhat irritable. Focusing and [place]. Compliant medications. Justification for Cont. Inpt. At this time patient with decompensated place to the lower level of care Discharge Planning The need to discuss this with family Tejas Bee MD Nov 18, 2017 13:55
[2017-11-18] MEDS: hydrALAZINE HCL 25 MG TAB PO SCH ×2 (14:02→20:32)
[2017-11-18 16:40] VITALS: BP 174/75; PULSE 63; RESP 18; TEMP 97.7; O2SAT 99
[2017-11-19] MEDS: hydrALAZINE HCL 25 MG TAB PO SCH ×3 (05:51→20:39)
[2017-11-19 06:13] VITALS: BP 184/79; PULSE 75; RESP 18; TEMP 96.8; O2SAT 96
[2017-11-19] MEDS: INSULIN ASPART SUPPLEMENTAL SCALE SQ SCH ×4 (08:00→20:38)
[2017-11-19] MEDS: LISINOPRIL 5 MG TAB PO SCH (08:16)
[2017-11-19] MEDS: ATORVASTATIN 40 MG TAB PO SCH (08:16)
[2017-11-19] MEDS: REMOVE OLD PATCH T-DERMAL SCH (08:16)
[2017-11-19] MEDS: ASPIRIN EC 81 MG TABEC PO SCH (08:16)
--- NOTE | 2017-11-19 13:29 | HHI.PYPN ---
Subjective Remarks Patient seen in dayroom with floor staff and medical student Roger, chart review , patient discussed with nurse. Patient continues diffusely confused and demented, continues his focus on wanting to return to [place]. Is compliant with medications. Is had no significant behavioral problems recently. Hopeless of remains quite problematic Review of Systems Except as stated in HPI: all other systems reviewed are Neg Mental Status Examination Appearance: Disheveled Consciousness: Alert Orientation: Person Speech: Other (indecipherable) Language: Other Fund of Knowledge: Poor (Russian/Mohawk) Attention and Concentration: Other (very poor) Memory: Impaired Mood: Irritable Affect: Labile Thought Process & Associations: Disorganized Thought Content: Other (medically disorganized) Hallucination Type: Other (unable to ascertain due to cognitive deficit) Delusion Type: Other (unable to ascertain due to cognitive deficit) Suicidal Ideation: No Suicidal Plan: No Suicidal Intention: No Homicidal Ideation: No Homicidal Plan: No Homicidal Intention: No Insight: Poor Judgment: Poor Results Vitals/IOs Vital Signs Date Time Temp Pulse Resp B/P (MAP) Pulse Ox O2 Delivery O2 Flow Rate FiO2 11/19/17 06:13 96.8 75 18 184/79 (114) 96 Intake and Output 11/19/17 11/19/17 11/20/17 08:00 16:00 00:00 Intake Total 360 ml Balance 360 ml Assessment & Plan Problem List: (1) DEMENTIA IN OTH DISEASES CLASSD ELSWHR W BEHAVIORAL DISTURB ICD Codes: F02.81 - DEMENTIA IN OTH DISEASES CLASSD ELSWHR W BEHAVIORAL DISTURB (2) ALZHEIMER'S DISEASE WITH LATE ONSET ICD Codes: G30.1 - ALZHEIMER'S DISEASE WITH LATE ONSET Assessment & Plan Estimated LOS: days patient is confused and demented, though no significant behavioral problems he continues to focus on discharge and returning to [place] Justification for Cont. Inpt. At this time patient would decompensated placed in the lower level of care Discharge Planning Placement may be problematic continue to work with family Tejas Bee MD Nov 19, 2017 13:29
[2017-11-19] MEDS: QUEtiapine FUMARATE 25 MG TAB PO SCH ×3 (14:31→20:39)
[2017-11-19 17:36] VITALS: BP 162/65; PULSE 75
[2017-11-19 18:11] VITALS: BP 199/84; PULSE 67; RESP 18; TEMP 97.2; O2SAT 99
[2017-11-19] MEDS: diphenhydrAMINE HCL 50 MG CAP PO PRN (20:39)
[2017-11-20] MEDS: hydrALAZINE HCL 25 MG TAB PO SCH ×3 (05:25→22:00)
[2017-11-20 06:00] VITALS: BP 180/56; PULSE 59; RESP 18; TEMP 96.9
[2017-11-20] MEDS: LISINOPRIL 5 MG TAB PO SCH (07:39)
[2017-11-20] MEDS: INSULIN ASPART SUPPLEMENTAL SCALE SQ SCH ×4 (07:39→21:00)
[2017-11-20] MEDS: ATORVASTATIN 40 MG TAB PO SCH (07:39)
[2017-11-20] MEDS: ASPIRIN EC 81 MG TABEC PO SCH (07:39)
[2017-11-20] MEDS: REMOVE OLD PATCH T-DERMAL SCH (07:40)
--- NOTE | 2017-11-20 14:13 | HHI.PYPN ---
Subjective Remarks Pt seen and discussed with staff. He has been irritable and combative with care. He is compliant with medications. He repeatedly states that he wants to go home to [place]. Mental Status Examination Appearance: Appropriate Consciousness: Alert Orientation: Person Motor Activity: Other (no abnormal motor movements) Speech: Hesitant (low volume, speaks in east timorese patois at times, paucity of speech), Other (speaks in patois ) Fund of Knowledge: Poor (Turkmen/Micronesian) Attention and Concentration: Other (very poor) Memory: Impaired Mood: Irritable Affect: Flat Thought Process & Associations: Disorganized Hallucination Type: None Delusion Type: None, Other (unable to ascertain due to cognitive deficit) Suicidal Ideation: No Suicidal Plan: No Suicidal Intention: No Homicidal Ideation: No Homicidal Plan: No Homicidal Intention: No Insight: Poor Judgment: Poor Results Vitals/IOs Vital Signs Date Time Temp Pulse Resp B/P (MAP) Pulse Ox O2 Delivery O2 Flow Rate FiO2 11/20/17 06:00 96.9 59 18 180/56 (97) 11/19/17 18:11 99 Intake and Output 11/20/17 11/20/17 11/21/17 08:00 16:00 00:00 Intake Total 360 ml Balance 360 ml Assessment & Plan Problem List: (1) DEMENTIA IN OTH DISEASES CLASSD ELSWHR W BEHAVIORAL DISTURB ICD Codes: F02.81 - DEMENTIA IN OTH DISEASES CLASSD ELSWHR W BEHAVIORAL DISTURB (2) ALZHEIMER'S DISEASE WITH LATE ONSET ICD Codes: G30.1 - ALZHEIMER'S DISEASE WITH LATE ONSET Assessment & Plan continue current tx plan. Estimated LOS: days Justification for Cont. Inpt. risk of decompensation Stacy Mitchell MD Nov 20, 2017 14:13
[2017-11-20] MEDS: QUEtiapine FUMARATE 25 MG TAB PO SCH ×3 (16:09→22:00)
[2017-11-20 18:00] VITALS: BP 172/82; PULSE 81; RESP 17; TEMP 98.2; O2SAT 99
[2017-11-21] MEDS: hydrALAZINE HCL 25 MG TAB PO SCH ×3 (05:48→20:49)
[2017-11-21 06:13] VITALS: BP 117/57; PULSE 66; RESP 17; TEMP 98.4; O2SAT 96
[2017-11-21] MEDS: INSULIN ASPART SUPPLEMENTAL SCALE SQ SCH ×4 (08:00→20:49)
[2017-11-21] MEDS: REMOVE OLD PATCH T-DERMAL SCH (09:00)
[2017-11-21] MEDS: LISINOPRIL 5 MG TAB PO SCH (09:00)
[2017-11-21] MEDS: ATORVASTATIN 40 MG TAB PO SCH (09:18)
[2017-11-21] MEDS: ASPIRIN EC 81 MG TABEC PO SCH (09:18)
[2017-11-21] MEDS: QUEtiapine FUMARATE 25 MG TAB PO SCH ×3 (12:00→20:49)
--- NOTE | 2017-11-21 12:09 | HHI.PYPN ---
Subjective Remarks Pt seen and discussed with staff. He has cooperative with care. He was irritable this morning and refused morning dose of lipitor and aspirin. He slept well last night. No aggression today. He denies pain or discomfort. He has spent most of day in his room. Mental Status Examination Appearance: Appropriate Consciousness: Alert Orientation: Person Motor Activity: Other (no abnormal motor movements) Speech: Hesitant (low volume, speaks in emile patois at times, paucity of speech), Other (speaks in patois ) Fund of Knowledge: Poor (Luxembourger/Canadian) Attention and Concentration: Other (very poor) Memory: Impaired Mood: Irritable Affect: Flat Thought Process & Associations: Disorganized Hallucination Type: None Delusion Type: None, Other (unable to ascertain due to cognitive deficit) Suicidal Ideation: No Suicidal Plan: No Suicidal Intention: No Homicidal Ideation: No Homicidal Plan: No Homicidal Intention: No Insight: Poor Judgment: Poor Results Vitals/IOs Vital Signs Date Time Temp Pulse Resp B/P (MAP) Pulse Ox O2 Delivery O2 Flow Rate FiO2 11/21/17 06:13 98.4 66 17 117/57 (77) 96 Assessment & Plan Problem List: (1) DEMENTIA IN OTH DISEASES CLASSD ELSWHR W BEHAVIORAL DISTURB ICD Codes: F02.81 - DEMENTIA IN OTH DISEASES CLASSD ELSWHR W BEHAVIORAL DISTURB (2) ALZHEIMER'S DISEASE WITH LATE ONSET ICD Codes: G30.1 - ALZHEIMER'S DISEASE WITH LATE ONSET Assessment & Plan Continue current tx plan. Estimated LOS: days Justification for Cont. Inpt. risk of decompensation Stacy Mitchell MD Nov 21, 2017 12:09
[2017-11-21 16:30] VITALS: BP 167/71; PULSE 61; RESP 18; TEMP 98; O2SAT 99
[2017-11-21] MEDS: diphenhydrAMINE HCL 50 MG CAP PO PRN (20:49)
[2017-11-22] MEDS: hydrALAZINE HCL 25 MG TAB PO SCH ×3 (05:00→21:25)
[2017-11-22 06:12] VITALS: BP 178/73; PULSE 61; RESP 16; TEMP 98.4; O2SAT 96
[2017-11-22] MEDS: INSULIN ASPART SUPPLEMENTAL SCALE SQ SCH ×4 (08:00→21:00)
[2017-11-22] MEDS: REMOVE OLD PATCH T-DERMAL SCH (09:00)
[2017-11-22] MEDS: ASPIRIN EC 81 MG TABEC PO SCH (10:46)
[2017-11-22] MEDS: ATORVASTATIN 40 MG TAB PO SCH (10:46)
[2017-11-22] MEDS: LISINOPRIL 5 MG TAB PO SCH (10:46)
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
[2017-11-22] MEDS: QUEtiapine FUMARATE 25 MG TAB PO SCH ×3 (11:56→21:25)
[2017-11-23] MEDS: LORazepam 2 MG/ML VIAL IM PRN (05:15)
[2017-11-23] MEDS: hydrALAZINE HCL 25 MG TAB PO SCH ×3 (05:59→21:03)
[2017-11-23 06:31] VITALS: BP 111/55; PULSE 86; RESP 16; TEMP 97.3; O2SAT 98
[2017-11-23] MEDS: INSULIN ASPART SUPPLEMENTAL SCALE SQ SCH ×4 (08:15→16:49)
[2017-11-23] MEDS: ATORVASTATIN 40 MG TAB PO SCH (09:30)
[2017-11-23] MEDS: LISINOPRIL 5 MG TAB PO SCH (09:30)
[2017-11-23] MEDS: ASPIRIN EC 81 MG TABEC PO SCH (09:31)
[2017-11-23] MEDS: REMOVE OLD PATCH T-DERMAL SCH (09:33)
[2017-11-23] MEDS: QUEtiapine FUMARATE 25 MG TAB PO SCH ×3 (12:00→21:03)
--- NOTE | 2017-11-23 16:03 | HHI.PYPN ---
Subjective Remarks Patient seen in dayroom with coarse have, discussed with nurse. Patient continues diffusely confused disoriented, continues to focus on Dilcia. It appears she is having some episodes of incontinence of urine and has had soft stools. Staff states he threw a piece of soft stool against a wall in his room Review of Systems Except as stated in HPI: all other systems reviewed are Neg Mental Status Examination Appearance: Appropriate Consciousness: Alert Orientation: Person Motor Activity: Other (no abnormal motor movements) Speech: Hesitant (low volume, speaks in emile patois at times, paucity of speech), Other (speaks in patois ) Fund of Knowledge: Poor (Sinhala/Latvian) Attention and Concentration: Other (very poor) Memory: Impaired Mood: Irritable Affect: Flat Thought Process & Associations: Disorganized Hallucination Type: None Delusion Type: None, Other (unable to ascertain due to cognitive deficit) Suicidal Ideation: No Suicidal Plan: No Suicidal Intention: No Homicidal Ideation: No Homicidal Plan: No Homicidal Intention: No Insight: Poor Judgment: Poor Results Vitals/IOs Vital Signs Date Time Temp Pulse Resp B/P (MAP) Pulse Ox O2 Delivery O2 Flow Rate FiO2 11/23/17 06:31 97.3 86 16 111/55 (73) 98 Assessment & Plan Problem List: (1) DEMENTIA IN OTH DISEASES CLASSD ELSWHR W BEHAVIORAL DISTURB ICD Codes: F02.81 - DEMENTIA IN OTH DISEASES CLASSD ELSWHR W BEHAVIORAL DISTURB (2) ALZHEIMER'S DISEASE WITH LATE ONSET ICD Codes: G30.1 - ALZHEIMER'S DISEASE WITH LATE ONSET Assessment & Plan Estimated LOS: days patient continues confused and demented, with some increased behavior problems. Patient still focuses on wanting to return to to make it. Plan is for us to discharge patient to his son tomorrow. Justification for Cont. Inpt. This time patient will decompensate with placed a lower level of care Discharge Planning Possible discharge to some tomorrow Tejas Bee MD Nov 23, 2017 16:03
[2017-11-23 18:31] VITALS: BP 174/75; PULSE 82; RESP 18; TEMP 97.2; O2SAT 98
[2017-11-23] MEDS: diphenhydrAMINE HCL 50 MG CAP PO PRN (21:03)
[2017-11-24] MEDS: hydrALAZINE HCL 25 MG TAB PO SCH ×5 (05:45→20:34)
[2017-11-24 05:56] VITALS: BP 183/78; PULSE 74; RESP 16; TEMP 96.9; O2SAT 100
[2017-11-24] MEDS: INSULIN ASPART SUPPLEMENTAL SCALE SQ SCH ×4 (07:41→19:55)
[2017-11-24] MEDS: LORazepam 2 MG/ML VIAL IM PRN (08:18)
[2017-11-24] MEDS: REMOVE OLD PATCH T-DERMAL SCH (09:00)
[2017-11-24] MEDS: ATORVASTATIN 40 MG TAB PO SCH (09:33)
[2017-11-24] MEDS: ASPIRIN EC 81 MG TABEC PO SCH (09:33)
[2017-11-24] MEDS: LISINOPRIL 5 MG TAB PO SCH (09:34)
[2017-11-24] MEDS ORDERED: LORA-392 PO (09:39)
[2017-11-24] MEDS ORDERED: SERO50TA PO (09:39)
[2017-11-24] MEDS ORDERED: ATOR40TA16 PO (09:39)
[2017-11-24] MEDS ORDERED: ECASA81 PO (09:39)
[2017-11-24] MEDS ORDERED: LISI-519 PO (09:39)
--- NOTE | 2017-11-24 09:45 | HHI.DS ---
Psychiatry Discharge Summary Inpatient Psychiatric care?: Yes Advance Directive: No Reason Not Provided: pt is confused Mental Health AdvanceDirective: No Health Care Proxy: No Admission Admission Date Nov 12, 2017 at 16:53 Admission Diagnosis: (1) ALZHEIMER'S DISEASE WITH LATE ONSET ICD Code: G30.1 - ALZHEIMER'S DISEASE WITH LATE ONSET (2) DEMENTIA IN OTH DISEASES CLASSD ELSWHR W BEHAVIORAL DISTURB ICD Code: F02.81 - DEMENTIA IN OTH DISEASES CLASSD ELSWHR W BEHAVIORAL DISTURB Brief History Patient is a 72-year-old [place] male who comes her under Gipson act but [facility] office stated 11/11/17 the document reviewed and agreed with essentially stated patient has a dementia has been increasingly aggressive angry and threatening towards his son. That he suffered from a severe stroke in the past year to standing his medication was self if was not taken back to job make up patient seen screened in the ED urine toxicology positive for benzodiazepines. Patient is this limited 2500. He became out of control necessitating ETO's overlaid last night into this morning.Transfer from Timeout here 2700. At the present time patient laying quietly the observation room is diffusely confused and all 4 spheres. He does speak in broken Pashto and Liberian. He is in no acute distress. At the present time patient does meet criteria for acute inpatient psychiatric hospitalization. I'll do first opinion request second opinion. I feel does not have capacity thus I'll ask for healthcare surrogate and guardian advocate. Related contact patient's son to get further information and approval for treatment. We will the hospitalist also consult was also have a PT consultation Tobacco Use In Past 30 Days: No Tobacco Past 30 Days Alcohol Use: Never Hospital Course Patient's hospital course was reflective of his dementia. With perseveration on his wanting to return he has occasionally shown some mild irritation needing redirection related to this frustration on his part. We did meet with the patient's son earlier this week. He agrees that this is been a perseveration on his father's part for an extended period of time. He does wish his father to return home with him. Patient has been overall fairly compliant with his medications. I did speak with him today. The father's confusion persists but when speaking of Norden and his desire to be discharged patient appears willing to be cooperative with his medication cooperative with his son with doctor's appointments and medication management. Thus at this time I feel we have reached the maximum benefit of this hospitalization. Patient to be discharged today Rx 1 month I will include in and the prescriptions Ativan 0.5 mg #30 one every 12 hours when necessary anxiety. Will also do an increase of the Seroquel adding 100 mg at at bedtime to the regimen. Results Blood Pressure 183 / 78 Vital Signs Date Time Temp Pulse Resp B/P (MAP) Pulse Ox O2 Delivery O2 Flow Rate FiO2 11/24/17 05:56 96.9 74 16 183/78 (113) 100 Laboratory Results Test 11/14/17 10:30 Cholesterol Level 231 MG/DL (120-200) HDL Cholesterol 80.8 MG/DL (40.0-60.0) Hemoglobin A1c 5.5 % (4.3-6.0) LDL Cholesterol 142 MG/DL (0-99) Triglycerides Level 41 MG/DL (42-150) Summary of Procedures None done Pending results at discharge: No Medications # of Antipsychotic meds at D/C: 1 Approp Antipsych med options 1 - Minimum of three failed multiple trials of monotherapy. 2 - Documented plan to taper to monotherapy due to previous use of multiple meds OR cross-taper in progress at D/C. 3 - Documentation of augmentation of Clozapine. 4 - Justification other than those listed in allowable values 1-3, document here : Discharge Discharge Date: Nov 24, 2017 Discharge Diagnosis: (1) ALZHEIMER'S DISEASE WITH LATE ONSET ICD Code: G30.1 - ALZHEIMER'S DISEASE WITH LATE ONSET (2) DEMENTIA IN OTH DISEASES CLASSD ELSWHR W BEHAVIORAL DISTURB ICD Code: F02.81 - DEMENTIA IN OTH DISEASES CLASSD ELSWHR W BEHAVIORAL DISTURB Pt Condition on Discharge: Stable Discharge Disposition: Discharge Home Discharge Instructions Diet Instructions: Heart Healthy Diet Activities you can perform: Regular-No Restrictions Scheduled Appointment: Gustavo Ocasio Discharge Time > 30 minutes Mental Status Examination Appearance: Appropriate Consciousness: Alert Orientation: Person Motor Activity: Other (no abnormal motor movements) Speech: Hesitant (low volume, speaks in nigerian patois at times, paucity of speech), Other (speaks in patois ) Fund of Knowledge: Poor (Pashto/Liberian) Attention and Concentration: Other (very poor) Memory: Impaired Mood: Irritable Affect: Flat Thought Process & Associations: Disorganized Hallucination Type: None Delusion Type: None, Other (unable to ascertain due to cognitive deficit) Suicidal Ideation: No Suicidal Plan: No Suicidal Intention: No Homicidal Ideation: No Homicidal Plan: No Homicidal Intention: No Insight: Poor Judgment: Poor Discharge/Advance Care Plan Health Problems: (1) DEMENTIA IN OTH DISEASES CLASSD ELSWHR W BEHAVIORAL DISTURB (2) ALZHEIMER'S DISEASE WITH LATE ONSET Goals to promote your health * To prevent worsening of your condition and complications * To maintain your health at the optimal level Directions to meet your goals Take your medications as prescribed Follow your dietary instruction Follow activity as directed Keep your appointments as scheduled Take your immunizations and boosters as scheduled If your symptoms worsen call your PCP, if no PCP go to Urgent Care Center or Emergency Room For 19/04 questions related to your inpatient stay or results of tests pending at discharge, please contact Dr. Tejas Bee at Smoking is Dangerous to Your Health. Avoid second hand smoking Tejas Bee MD Nov 24, 2017 09:45
[2017-11-24] MEDS: QUEtiapine FUMARATE 25 MG TAB PO SCH ×3 (12:00→20:34)
== END 2017-11-24 21:19 | disposition home or self-care (01) | DRG 57 ==
LOC: NEPD 15:11 → NEDA 11-12 16:53 → H250 11-12 19:14 → H270 11-14 08:13
PROVIDERS: ADMIT Psychiatry & Neurology Psychiatry; ATTEND Psychiatry & Neurology Psychiatry
DX: G30.1 Alzheimer's disease with late onset (principal); F02.81 Dementia in other diseases classified elsewhere, unspecified severity, with behavioral disturbance; R45.851 Suicidal ideations; I10 Essential (primary) hypertension; E11.9 Type 2 diabetes mellitus without complications; D50.9 Iron deficiency anemia, unspecified; I35.0 Nonrheumatic aortic (valve) stenosis; E78.00 Pure hypercholesterolemia, unspecified; H91.90 Unspecified hearing loss, unspecified ear; R32 Unspecified urinary incontinence; F41.9 Anxiety disorder, unspecified; Z86.73 Personal history of transient ischemic attack (TIA), and cerebral infarction without residual deficits
CPT/HCPCS: 80048; 80053; 80061; 80307; 81001; 82306; 82607; 82728; 82746; 82948; 83036; 83540; 83550; 84443; 85025; 93005; 99285; J1630; J1815; J2060; J3230; Q0163

== ENCOUNTER 2018-03-06 11:57 | Inpatient (IN) | payer OTHER, MEDICAID, MEDICARE ==
[~2018-03-06] VITALS: Ht 182.9 cm; Wt 87.4 kg
[~2018-03-06 11:57] MED LIST changes: -ALPR0.25 PO; +ATOR40TA16 PO; +ECASA81 PO; -HALD50IN IM; -HYDR-3799 PO; +LISI-519 PO; +LORA-392 PO; -METF500T PO; +SERO50TA PO
[2018-03-06 12:27] VITALS: BP 204/83; PULSE 90; RESP 18; TEMP 98.6
--- NOTE | 2018-03-06 12:32 | PD ---
HPI Chief Complaint: ba Time Seen by Provider: 12:29 Travel History International Travel<30 days: No Contact w/Intl Traveler<30days: No Traveled to known affect area: No History of Present Illness HPI 72-year-old male with history of dementia presents emergency department under a Gipson act for psychiatric evaluation. Patient has had more aggressive behavior. He has been combative with family members. Patient speaks Neal and translation is completed through a tech from the [email or web address]. Patient offers little history. He is the same many inappropriate things. He has no acute medical needs at this time. PFSH Past Medical History Depression: Yes Cardiovascular Problems: Yes (AORTIC STENOSIS) High Cholesterol: Yes Dementia: Yes Diabetes: Yes Hypertension: Yes Psychiatric: No Social History Alcohol Use: No Tobacco Use: No Substance Use: No Allergies-Medications (Allergen,Severity, Reaction): Coded Allergies: No Known Allergies (Unverified Allergy, Unknown, 03/06/18) Reported Meds & Prescriptions Reported Meds & Active Scripts Active Seroquel (Quetiapine Fumarate) 50 Mg Tab 50 Mg PO DIRECTED 11 at 8 AM, 1 at 1 PM, 1 at 6 PM, 2 at bedtime Ativan (Lorazepam) 0.5 Mg Tab 0.5 Mg PO Q12H PRN Lisinopril 5 Mg Tab 5 Mg PO DAILY Atorvastatin (Atorvastatin Calcium) 40 Mg Tab 40 Mg PO DAILY Aspirin DR (Aspirin) 81 Mg Tabdr 81 Mg PO DAILY Review of Systems Except as stated in HPI: all other systems reviewed are Neg Physical Exam Narrative GENERAL: Thin elderly male patient, lying in bed, obviously agitated, but in no acute distress. SKIN: Focused skin assessment warm/dry. HEAD: Normocephalic. EYES: No scleral icterus. No injection or drainage. NECK: Supple, trachea midline. No JVD or lymphadenopathy. CARDIOVASCULAR: Regular rate and rhythm without murmurs, gallops, or rubs. RESPIRATORY: Breath sounds equal bilaterally. No accessory muscle use. GASTROINTESTINAL: Abdomen soft, non-tender, nondistended. MUSCULOSKELETAL: No cyanosis, or edema. He moves all extremities freely. BACK: Nontender without obvious deformity. No CVA tenderness. Data Data Last Documented VS Vital Signs Date Time Temp Pulse Resp B/P (MAP) Pulse Ox O2 Delivery O2 Flow Rate FiO2 03/06/18 13:44 98.6 90 18 162/71 (101) 99 Room Air Orders Orders Complete Blood Count With Diff (03/06/18 12:29) Thyroid Stimulating Hormone (03/06/18 12:29) Basic Metabolic Panel (Bmp) (03/06/18 12:29) Urinalysis - C+S If Indicated (03/06/18 12:29) Psych Screen (03/06/18 12:29) Drug Screen, Random Urine (03/06/18 12:29) Alcohol (Ethanol) (03/06/18 12:29) Lorazepam Inj (Ativan Inj) (03/06/18 12:45) Haloperidol Inj (Haldol Inj) (03/06/18 13:30) Lorazepam Inj (Ativan Inj) (03/06/18 13:30) Labs Laboratory Tests Test 03/06/18 12:45 White Blood Count 8.7 TH/MM3 Red Blood Count 4.53 MIL/MM3 Hemoglobin 11.0 GM/DL Hematocrit 33.9 % Mean Corpuscular Volume 74.9 FL Mean Corpuscular Hemoglobin 24.4 PG Mean Corpuscular Hemoglobin Concent 32.5 % Red Cell Distribution Width 16.5 % Platelet Count 212 TH/MM3 Mean Platelet Volume 9.2 FL Neutrophils (%) (Auto) 74.0 % Lymphocytes (%) (Auto) 18.6 % Monocytes (%) (Auto) 6.3 % Eosinophils (%) (Auto) 0.5 % Basophils (%) (Auto) 0.6 % Neutrophils # (Auto) 6.5 TH/MM3 Lymphocytes # (Auto) 1.6 TH/MM3 Monocytes # (Auto) 0.6 TH/MM3 Eosinophils # (Auto) 0.0 TH/MM3 Basophils # (Auto) 0.1 TH/MM3 CBC Comment DIFF FINAL Differential Comment Blood Urea Nitrogen 20 MG/DL Creatinine 1.21 MG/DL Random Glucose 113 MG/DL Calcium Level 9.5 MG/DL Sodium Level 141 MEQ/L Potassium Level 3.8 MEQ/L Chloride Level 107 MEQ/L Carbon Dioxide Level 24.4 MEQ/L Anion Gap 10 MEQ/L Estimat Glomerular Filtration Rate 71 ML/MIN Thyroid Stimulating Hormone 3rd Gen 1.260 uIU/ML Ethyl Alcohol Level LESS THAN 3 MG/DL MDM Medical Decision Making Medical Screen Exam Complete: Yes Emergency Medical Condition: Yes Medical Record Reviewed: Yes Differential Diagnosis Mood disorder versus personality disorder versus adjustment reaction disorder Narrative Course 72-year-old male presents emergency department under Gipson for psychiatric evaluation. Patient appears without distress. He is visibly agitated. Patient is given Ativan and Haldol. Lab work is reviewed and without acute concern. Patient is medically cleared to undergo psychiatric screening for further evaluation and disposition. Mental health screening discussed with the patient. Psychiatric screen ordered. Diagnosis Primary Impression: DEMENTIA IN OTH DISEASES CLASSD CRYSTAL Betts BEHAVIORAL DISTURB Condition: Stable Jennifer Key Mar 06, 2018 12:32
[2018-03-06] MEDS ORDERED: LORazepam 2 MG/ML VIAL IM ONE ×2 (12:45→13:30)
[2018-03-06 13:08] LABS: AUTOMATED NEUTROPHIL # 6.5 TH/MM3 (1.8-7.7); BASOPHIL # 0.1 TH/MM3 (0-0.2); BASOPHIL % 0.6 % (0.0-2.0); EOSINOPHIL % 0.5 % (0.0-4.0); HEMATOCRIT 33.9 % (39.0-51.0); LYMPH % 18.6 % (9.0-44.0); LYMPHOCYTE # 1.6 TH/MM3 (1.0-4.8); MEAN CELL VOLUME 74.9 FL (80.0-100.0); MEAN CORPUSCULAR HEMOGLOBIN 24.4 PG (27.0-34.0); MEAN CORPUSCULAR HGB CONC 32.5 % (32.0-36.0); MEAN PLATELET VOLUME 9.2 FL (7.0-11.0); MONO % 6.3 % (0.0-8.0); MONOCYTE # 0.6 TH/MM3 (0-0.9); PLATELET COUNT 212 TH/MM3 (150-450); RED BLOOD COUNT 4.53 MIL/MM3 (4.50-5.90); RED CELL DISTRIBUTION WIDTH 16.5 % (11.6-17.2); WHITE BLOOD COUNT 8.7 TH/MM3 (4.0-11.0)
[2018-03-06 13:28] LABS: BICARBONATE 24.4 MEQ/L (21.0-32.0); BLOOD UREA NITROGEN 20 MG/DL (7-18); CALCIUM 9.5 MG/DL (8.5-10.1); CHLORIDE 107 MEQ/L (98-107); CREATININE 1.21 MG/DL (0.60-1.30); GLOMERULAR FILTRATION RATE 71 ML/MIN (>89); GLUCOSE,RANDOM 113 MG/DL (74-106); SODIUM (NA) 141 MEQ/L (136-145)
[2018-03-06] MEDS ORDERED: HALOPERIDOL LACTATE 5 MG/ML AMP IM ONE (13:30)
[2018-03-06 13:44] VITALS: BP 162/71; PULSE 90; RESP 18; TEMP 98.6; O2SAT 99
[2018-03-06 15:13] VITALS: BP 199/87; PULSE 94; RESP 18; O2SAT 98
--- NOTE | 2018-03-06 16:04 | RADRPT ---
EXAM DATE: 03/06/2018 4:02 PM EDT AGE/SEX: 72 years / Male INDICATIONS: Fall trauma. CLINICAL DATA: This is the patient's initial encounter. Patient reports that signs and symptoms have been present for 1 day and indicates a pain score of Nonresponsive. MEDICAL/SURGICAL HISTORY: Non-responsive. Non-responsive. COMPARISON: No prior exams available for comparison. FINDINGS: Examination of the pelvis demonstrates no evidence of fracture or dislocation. Bony mineralization i s normal. There is no widening of the sacroiliac joints. No foreign body is identified. CONCLUSION: No acute findings. Electronically signed by: Kiel Tovar MD 03/06/2018 4:03 PM EDT
--- NOTE | 2018-03-06 16:05 | RADRPT ---
EXAM DATE: 03/06/2018 3:53 PM EDT AGE/SEX: 72 years / Male INDICATIONS: Fall trauma. CLINICAL DATA: This is the patient's initial encounter. Patient reports that signs and symptoms have been present for 1 day and indicates a pain score of Nonresponsive. MEDICAL/SURGICAL HISTORY: Non-responsive. Non-responsive. COMPARISON: No prior exams available for comparison. FINDINGS: A single AP view of the chest demonstrates the lungs to be symmetrically aerated without evidence of mass, infiltrate or effusion. The cardiomediastinal contours are unremarkable. Osseous structures a re intact. CONCLUSION: No acute findings. Electronically signed by: Kiel Tovar MD 03/06/2018 4:04 PM EDT
--- NOTE | 2018-03-06 16:08 | RADRPT ---
EXAM DATE: 03/06/2018 4:00 PM EDT AGE/SEX: 72 years / Male INDICATIONS: Trauma, fall today. CLINICAL DATA: This is the patient's initial encounter. Patient reports that signs and symptoms have been present for 1 day and indicates a pain score of 0/10. MEDICAL/SURGICAL HISTORY: Carotid stenosis. Hypertension. Diabetes mellitus type II. None. RADIATION DOSE: 56.35 CTDI (mGy) COMPARISON: No prior exams available for comparison. TECHNIQUE: CT of the head without contrast. Using automated exposure control and adjustment of the mA and/or kV according to patient size, radiation dose was kept as low as reasonably achievable to ob tain optimal diagnostic quality images. FINDINGS: There are numerous remote infarcts involving both cerebellar hemispheres measuring up to about 2.6 cm on the left and 2 cm on the right. There is also a wedge-shaped remote infarct in the left posterior temporal region extending into the parieto-occipital region. Lacunar infarcts present in both thalam i, remote. White matter ischemic changes present. CONCLUSION: 1. Multiple remote bilateral infarcts involving the cerebrum and cerebellar hemispheres as above. No acute intracranial hemorrhage, mass effect or shift. No acute bony abnormality. Electronically signed by: Kiel Tovar MD 03/06/2018 4:06 PM EDT
--- NOTE | 2018-03-06 16:21 | RADRPT ---
EXAM DATE: 03/06/2018 4:03 PM EDT AGE/SEX: 72 years / Male INDICATIONS: Trauma, fall. CLINICAL DATA: This is the patient's initial encounter. Patient reports that signs and symptoms have been present for 1 day and indicates a pain score of 3/10. MEDICAL/SURGICAL HISTORY: Cardiovascular disease. Hypertension. Diabetes. None. RADIATION DOSE: 22.31 CTDI (mGy) COMPARISON: No prior exams available for comparison. TECHNIQUE: Contiguous axial images were obtained using helical multirow detector technique. The vol umetric data was post-processed with multiplanar reconstruction in oblique axial, sagittal, and coron al planes. Using automated exposure control and adjustment of the mA and/or kV according to patient s ize, radiation dose was kept as low as reasonably achievable to obtain optimal diagnostic quality daiana ges. FINDINGS: No acute fracture. No prevertebral soft tissue swelling. There is a broad-based disc protrusion at C4 -5 and C5-6 resulting in a mild canal and lateral recess stenosis. CONCLUSION: 1. No acute fracture. Broad-based disc protrusions at C4-5-6 and to a lesser extent at C3-4. 2. Hypertrophic changes around the atlantoaxial articulation Electronically signed by: Kiel Tovar MD 03/06/2018 4:19 PM EDT
--- NOTE | 2018-03-06 16:32 | RADRPT ---
EXAM DATE: 03/06/2018 4:10 PM EDT AGE/SEX: 72 years / Male INDICATIONS: Trauma, fall. CLINICAL DATA: This is the patient's initial encounter. Patient reports that signs and symptoms have been present for 1 day and indicates a pain score of 4/10. MEDICAL/SURGICAL HISTORY: Cardiovascular disease. Diabetes. Hypertension. None. RADIATION DOSE: 18.79 CTDI (mGy) ; Combined studies COMPARISON: No prior exams available for comparison. TECHNIQUE: Contiguous axial images were acquired using a multirow detector CT scanner without contra st. Multiplanar reconstruction in the sagittal and coronal planes was performed. Using automated exp osure control and adjustment of the mA and/or kV according to patient size, radiation dose was kept a s low as reasonably achievable to obtain optimal diagnostic quality images. FINDINGS: There is mild to moderate degenerative disc disease. No acute fracture or spondylolisthesis. No signi ficant canal or foraminal stenosis. Probable hemangioma at T4. CONCLUSION: 1. No acute findings. Electronically signed by: Kiel Tovar MD 03/06/2018 4:31 PM EDT
--- NOTE | 2018-03-06 16:39 | RADRPT ---
EXAM DATE: 03/06/2018 4:14 PM EDT AGE/SEX: 72 years / Male INDICATIONS: Trauma, fall. CLINICAL DATA: This is the patient's initial encounter. Patient reports that signs and symptoms have been present for 1 day and indicates a pain score of 3/10. MEDICAL/SURGICAL HISTORY: Cardiovascular disease. Hypertension. Diabetes. None. RADIATION DOSE: 18.79 CTDI (mGy) ; Combined studies COMPARISON: No prior exams available for comparison. TECHNIQUE: Contiguous axial images were acquired with a multirow detector CT scanner without contras t. Multiplanar reconstructions in the sagittal and coronal plane were also performed. Using automate d exposure control and adjustment of the mA and/or kV according to patient size, radiation dose was k ept as low as reasonably achievable to obtain optimal diagnostic quality images. FINDINGS: Probable hemangioma at L1. No acute fracture. No significant spondylolisthesis. At O28-G3-E2-E1 there is no significant bony canal stenosis. At L4-5 there is a broad-based posterior disc protrusion and facet arthropathy with focal moderate ce ntral canal stenosis and severe lateral recess stenosis as well as bilateral foraminal stenosis. At L5-S1 there is a broad-based disc bulge with moderate bilateral foraminal stenosis. CONCLUSION: 1. No acute fracture. At L4-5 there is a large broad-based disc protrusion with at least moderate ca nal stenosis. 2. Broad-based disc bulges at L3-4 and L5-S1 with bilateral foraminal stenosis at L5-S1. Electronically signed by: Kiel Tovar MD 03/06/2018 4:38 PM EDT
--- NOTE | 2018-03-06 16:46 | PD ---
Physical Exam Date Seen by Provider: Mar 06, 2018 Time Seen by Provider: 16:33 Narrative 72-year-old male the presents to the ED for evaluation of Gipson act. Patient apparently was evaluated by a different physician and apparently was moved to the psychiatric unit for psychiatric evaluation. Patient has a history of dementia and is not a good historian. He was recently admitted to the hospital and released. He was Gipson acted again secondary to aggression. Apparently patient had a possible fall on the room and I was asked to evaluate the patient by ED nurse. Please refer to the previous provider note for further evaluation of the initial complaint. I was asked to evaluate the patient. On my examination of the patient patient complains of pain but he cannot really tell me where. He is laying on his back. He appears to be moving the upper and lower extremities bilaterally. No obvious bruising or swelling or deformity noted. Follow was not witnessed so hard to tell what happened. Patient cannot really tell me what happened himself. GENERAL: SKIN: Warm and dry. HEAD: Atraumatic. Normocephalic. EYES: Pupils equal and round 4 mm reactive to light and accommodation. No scleral icterus. No injection or drainage. ENT: No nasal bleeding or discharge. Mucous membranes pink and moist. Tongue is midline. No uvula deviation. NECK: Trachea midline. No JVD. CARDIOVASCULAR: Regular rate and rhythm. No murmurs, S3, S4. RESPIRATORY: No accessory muscle use. Clear to auscultation. Breath sounds equal bilaterally. GASTROINTESTINAL: Abdomen soft, non-tender, nondistended. Hepatic and splenic margins not palpable. MUSCULOSKELETAL: Extremities without clubbing, cyanosis, or edema. No obvious deformities. Full range of motion of the upper and lower extremities bilaterally. 2+ pulses bilaterally. No obvious lumbar, thoracic, cervical spine tenderness to palpation. NEUROLOGICAL: Awake and alert. No obvious cranial nerve deficits. Motor grossly within normal limits. Five out of 5 muscle strength in the arms and legs. Normal speech. PSYCHIATRIC: Appropriate mood and affect; insight and judgment normal. Data Data Last Documented VS Vital Signs Date Time Temp Pulse Resp B/P (MAP) Pulse Ox O2 Delivery O2 Flow Rate FiO2 03/06/18 15:13 94 18 199/87 (124) 98 Room Air 03/06/18 13:44 98.6 Orders Orders Complete Blood Count With Diff (03/06/18 12:29) Thyroid Stimulating Hormone (03/06/18 12:29) Basic Metabolic Panel (Bmp) (03/06/18 12:29) Urinalysis - C+S If Indicated (03/06/18 12:29) Psych Screen (03/06/18 12:29) Drug Screen, Random Urine (03/06/18 12:29) Alcohol (Ethanol) (03/06/18 12:29) Lorazepam Inj (Ativan Inj) (03/06/18 12:45) Haloperidol Inj (Haldol Inj) (03/06/18 13:30) Lorazepam Inj (Ativan Inj) (03/06/18 13:30) Diet Regular Basic (03/06/18 Dinner) Ct Brain W/O Iv Contrast(Rout) (03/06/18 15:27) Ct Cerv Spine W/O Contrast (03/06/18 15:27) Ct Thor Spine W/O Contrast (03/06/18 15:27) Ct Lumb Spine W/O Contrast (03/06/18 15:27) Chest, Single Ap (03/06/18 15:27) Pelvis, Ap Only (Routine) (03/06/18 15:27) Labs Laboratory Tests Test 03/06/18 12:45 White Blood Count 8.7 TH/MM3 Red Blood Count 4.53 MIL/MM3 Hemoglobin 11.0 GM/DL Hematocrit 33.9 % Mean Corpuscular Volume 74.9 FL Mean Corpuscular Hemoglobin 24.4 PG Mean Corpuscular Hemoglobin Concent 32.5 % Red Cell Distribution Width 16.5 % Platelet Count 212 TH/MM3 Mean Platelet Volume 9.2 FL Neutrophils (%) (Auto) 74.0 % Lymphocytes (%) (Auto) 18.6 % Monocytes (%) (Auto) 6.3 % Eosinophils (%) (Auto) 0.5 % Basophils (%) (Auto) 0.6 % Neutrophils # (Auto) 6.5 TH/MM3 Lymphocytes # (Auto) 1.6 TH/MM3 Monocytes # (Auto) 0.6 TH/MM3 Eosinophils # (Auto) 0.0 TH/MM3 Basophils # (Auto) 0.1 TH/MM3 CBC Comment DIFF FINAL Differential Comment Blood Urea Nitrogen 20 MG/DL Creatinine 1.21 MG/DL Random Glucose 113 MG/DL Calcium Level 9.5 MG/DL Sodium Level 141 MEQ/L Potassium Level 3.8 MEQ/L Chloride Level 107 MEQ/L Carbon Dioxide Level 24.4 MEQ/L Anion Gap 10 MEQ/L Estimat Glomerular Filtration Rate 71 ML/MIN Thyroid Stimulating Hormone 3rd Gen 1.260 uIU/ML Ethyl Alcohol Level LESS THAN 3 MG/DL MDM Medical Record Reviewed: Yes Supervised Visit with TONI: No Differential Diagnosis Fracture versus fall versus Gipson act Narrative Course 72-year-old male the presents to the ED for evaluation of a fall. I was asked by ED nurse to evaluate the patient as he had a fall in the psychiatric unit. No signs of acute injury but unclear if patient actually fell or not. At this time I do recommend imaging as patient is demented and cannot really provide any information. Imaging was ordered. Case was signed out to Jennifer elder pending disposition. Diagnosis Primary Impression: DEMENTIA IN OTH DISEASES CLASSD CRYSTAL Betts BEHAVIORAL DISTURB Condition: Stable Sathish Batres Mar 06, 2018 16:46
[2018-03-06] MEDS ORDERED: NICOTINE 21 MG/24 HR PATCH T-DERMAL PRN (17:15)
[2018-03-06] MEDS ORDERED: MAGNESIUM HYDROXIDE SUSP 30 ML CUP PO PRN (17:15)
[2018-03-06] MEDS ORDERED: ALUMINUM/MAGNESIUM/SIMETH 30 ML CUP PO PRN (17:15)
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
[2018-03-06 18:14] VITALS: BP 181/82; PULSE 73; RESP 18; O2SAT 96
[2018-03-06] MEDS ORDERED: cloNIDine HCL 0.1 MG TAB PO PRN (18:15)
[2018-03-06 18:47] VITALS: BP 162/87; PULSE 80
[2018-03-07 06:17] VITALS: BP 133/88; PULSE 60; RESP 18; TEMP 97.4; O2SAT 95
[2018-03-07] MEDS: ASPIRIN EC 81 MG TABEC PO SCH (08:48)
[2018-03-07] MEDS: LISINOPRIL 5 MG TAB PO SCH (08:48)
[2018-03-07] MEDS: ATORVASTATIN 40 MG TAB PO SCH (08:48)
[2018-03-07] MEDS ORDERED: DEXTROSE 50% IN WATER 50 ML VIAL(D50) IV PUSH PRN (09:30)
[2018-03-07] MEDS ORDERED: GLUCAGON 1 MG/ML VIAL OTHER PRN (09:30)
[2018-03-07 09:32] LABS: AUTOMATED NEUTROPHIL # 8.3 TH/MM3 (1.8-7.7); BASOPHIL % 0.3 % (0.0-2.0); EOSINOPHIL % 0.1 % (0.0-4.0); HEMATOCRIT 32.4 % (39.0-51.0); HEMOGLOBIN 10.6 GM/DL (13.0-17.0); LYMPH % 15.1 % (9.0-44.0); LYMPHOCYTE # 1.6 TH/MM3 (1.0-4.8); MEAN CORPUSCULAR HEMOGLOBIN 24.1 PG (27.0-34.0); MEAN CORPUSCULAR HGB CONC 32.6 % (32.0-36.0); MEAN PLATELET VOLUME 9.6 FL (7.0-11.0); MONO % 6.7 % (0.0-8.0); MONOCYTE # 0.7 TH/MM3 (0-0.9); NEUT % 77.8 % (16.0-70.0); PLATELET COUNT 178 TH/MM3 (150-450); RED BLOOD COUNT 4.38 MIL/MM3 (4.50-5.90); RED CELL DISTRIBUTION WIDTH 16.9 % (11.6-17.2); WHITE BLOOD COUNT 10.6 TH/MM3 (4.0-11.0)
[2018-03-07 09:41] LABS: ALBUMIN 3.4 GM/DL (3.4-5.0); AST (GOT) 13 U/L (15-37); BICARBONATE 23.9 MEQ/L (21.0-32.0); BLOOD UREA NITROGEN 19 MG/DL (7-18); CHLORIDE 106 MEQ/L (98-107); CREATININE 1.15 MG/DL (0.60-1.30); GLOMERULAR FILTRATION RATE 75 ML/MIN (>89); GLUCOSE,RANDOM 103 MG/DL (74-106); SODIUM (NA) 139 MEQ/L (136-145)
[2018-03-07 09:42] LABS: ALT (GPT) 17 U/L (12-78); CHOLESTEROL 184 MG/DL (120-200)
[2018-03-07 09:44] LABS: ALKALINE PHOSPHATASE 70 U/L (45-117); CHOLESTEROL/ HDL RATIO 3.18 RATIO; HDL CHOLESTEROL 57.7 MG/DL (40.0-60.0); LDL CHOLESTEROL 117 MG/DL (0-99); TOTAL BILIRUBIN ADULT 0.6 MG/DL (0.2-1.0); TOTAL PROTEIN 7.8 GM/DL (6.4-8.2); TRIGLYCERIDES 47 MG/DL (42-150)
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
[2018-03-07] MEDS: INSULIN ASPART SUPPLEMENTAL SCALE SQ SCH ×3 (11:22→21:00)
--- NOTE | 2018-03-07 13:57 | EKG ---
Date Performed: 03/07/2018 Time Performed: 13:27:13 PTAGE: 72 years EKG: SINUS BRADYCARDIA WITH FIRST DEGREE AV BLOCK MARKED LEFT AXIS DEVIATION LEFT VENTRICULAR HY PERTROPHY AND ST-T CHANGE POSSIBLE ANTERIOR MYOCARDIAL INFARCTION , OF INDETERMINATE AGE ABNORMAL ECG No significant change from prior electrocardiogram. PREVIOUS TRACING : 11/12/2017 20.46 DOCTOR: John Roca Interpretating Date/Time 03/07/2018 13:55:53
[2018-03-07] MEDS ORDERED: NON-FORMULARY DRUG (Quetiapine (Seroquel) 50 MG) PO SCH (14:45)
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
--- NOTE | 2018-03-07 15:02 | PD.TTN ---
Patient Problems 1. Discharge planning 2. Medication compliance 3. Knowledge deficit 4. Lack of coping skills Progress Toward Goals Provider Present: Dr. Ameya Bee Provider Input: 03/07/18 he has been here treated before Psychiatric Counselors Present: Amena Medina LCSW Psych Therapist Input: 03/07/18 son called, he does not want to take medications at home but he can return home if stable [phone] Amena Medina LCSW Mar 07, 2018 15:01
[2018-03-07 17:32] VITALS: BP 195/77; PULSE 60; RESP 18; TEMP 97.8; O2SAT 95
[2018-03-07 18:20] VITALS: BP 170/84
[2018-03-07] MEDS: cloNIDine HCL 0.1 MG TAB PO PRN (18:20)
[2018-03-07] MEDS ORDERED: PILL SPLITTER OTHER PRN (20:30)
[2018-03-07] MEDS ORDERED: QUEtiapine FUMARATE 100 MG TAB PO SCH (21:00)
[2018-03-07] MEDS ORDERED: HALOPERIDOL LACTATE 5 MG/ML AMP IM SCH (22:30)
[2018-03-07] MEDS ORDERED: LORazepam 2 MG/ML VIAL IM SCH (22:30)
[2018-03-07] MEDS ORDERED: HALOPERIDOL LACTATE 5 MG/ML AMP ONE (22:43)
[2018-03-07] MEDS ORDERED: LORazepam 2 MG/ML VIAL ONE (22:43)
[2018-03-08] MEDS ORDERED: LORazepam 2 MG/ML VIAL IM SCH (02:00)
[2018-03-08] MEDS ORDERED: HALOPERIDOL LACTATE 5 MG/ML AMP IM SCH (02:00)
[2018-03-08] MEDS ORDERED: HALOPERIDOL LACTATE 5 MG/ML AMP ONE (02:04)
[2018-03-08] MEDS ORDERED: LORazepam 2 MG/ML VIAL ONE (02:04)
[2018-03-08 07:02] VITALS: PULSE 104; RESP 19; O2SAT 94
[2018-03-08] MEDS: INSULIN ASPART SUPPLEMENTAL SCALE SQ SCH ×4 (07:40→21:00)
[2018-03-08] MEDS ORDERED: QUEtiapine FUMARATE 100 MG TAB PO SCH ×2 (08:00→18:00)
[2018-03-08] MEDS ORDERED: QUEtiapine FUMARATE 200 MG TAB PO SCH ×2 (08:00→21:00)
[2018-03-08] MEDS: ASPIRIN EC 81 MG TABEC PO SCH (08:06)
[2018-03-08] MEDS: LISINOPRIL 5 MG TAB PO SCH (08:07)
[2018-03-08] MEDS: ATORVASTATIN 40 MG TAB PO SCH (08:07)
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
[2018-03-08] MEDS ORDERED: QUEtiapine FUMARATE 25 MG TAB PO SCH (13:00)
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
[2018-03-08] MEDS: cloNIDine HCL 0.1 MG TAB PO PRN (17:18)
[2018-03-08] MEDS: QUEtiapine FUMARATE 200 MG TAB PO SCH ×2 (20:14→21:00)
[2018-03-09 06:05] VITALS: BP 147/64; PULSE 51; RESP 15; O2SAT 93
[2018-03-09] MEDS: INSULIN ASPART SUPPLEMENTAL SCALE SQ SCH ×4 (07:45→21:00)
[2018-03-09] MEDS: LISINOPRIL 5 MG TAB PO SCH (09:00)
[2018-03-09] MEDS: ASPIRIN EC 81 MG TABEC PO SCH (09:00)
[2018-03-09] MEDS: ATORVASTATIN 40 MG TAB PO SCH (09:00)
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
[2018-03-09] MEDS: QUEtiapine FUMARATE 100 MG TAB PO SCH ×2 (11:44→18:00)
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
[2018-03-09 18:07] VITALS: BP 146/65; PULSE 54; RESP 15; TEMP 97.2; O2SAT 93
[2018-03-09] MEDS: QUEtiapine FUMARATE 200 MG TAB PO SCH (20:03)
[2018-03-09] MEDS ORDERED: diphenhydrAMINE HCL 50 MG/ML VIAL IM ONE (21:45)
[2018-03-09] MEDS ORDERED: HALOPERIDOL LACTATE 5 MG/ML AMP IM ONE (22:15)
[2018-03-10] MEDS: INSULIN ASPART SUPPLEMENTAL SCALE SQ SCH ×3 (08:00→16:00)
[2018-03-10] MEDS: ASPIRIN EC 81 MG TABEC PO SCH (09:00)
[2018-03-10] MEDS: ATORVASTATIN 40 MG TAB PO SCH (09:00)
[2018-03-10] MEDS: LISINOPRIL 5 MG TAB PO SCH (09:00)
[2018-03-10] MEDS: QUEtiapine FUMARATE 100 MG TAB PO SCH ×2 (12:00→17:57)
[2018-03-10 12:39] VITALS: BP 192/80; PULSE 68
--- NOTE | 2018-03-10 12:46 | HHI.PR ---
Subjective Remarks Follow up on patient with dementia, , HTN, DM, s/p fall. Nursing staff does not report any acute concerns, patient refused morning vital signs. Vital signs checked around noon with BP 192/80. Patient is seen and examined sitting up in Eufemia chair in the day room in no acute distress. Patient does not engage in conversation or voice any concerns, eyes closed, moves all extremities spontaneously. Objective Vitals Vital Signs Date Time Temp Pulse Resp B/P (MAP) Pulse Ox O2 Delivery O2 Flow Rate FiO2 03/10/18 12:39 68 192/80 (117) 03/09/18 18:07 97.2 54 15 146/65 (92) 93 I/O 03/09/18 03/09/18 03/09/18 03/10/18 03/10/18 03/10/18 07:00 15:00 23:00 07:00 15:00 23:00 Intake Total 600 ml 240 ml 240 ml Balance 600 ml 240 ml 240 ml Intake Oral 600 ml 240 ml 240 ml Result Diagram: 03/07/18 0753 03/07/18 0753 Imaging Last Impressions Thoracic Spine CT 03/06/181526 Signed Impressions: CONCLUSION: 1. No acute findings. Pelvis X-Ray 03/06/181526 Signed Impressions: CONCLUSION: No acute findings. Lumbar Spine CT 03/06/181526 Signed Impressions: CONCLUSION: 1. No acute fracture. At L4-5 there is a large broad-based disc protrusion wit h at least moderate canal stenosis. 2. Broad-based disc bulges at L3-4 and L5-S1 with bilateral foraminal stenosis at L5-S1. Head CT 03/06/181526 Signed Impressions: CONCLUSION: 1. 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 No acute intracranial hemorrhage, mass effect or shift. No acute bony abnormality. Chest X-Ray 03/06/181526 Signed Impressions: CONCLUSION: No acute findings. Cervical Spine CT 03/06/181526 Signed Impressions: CONCLUSION: 1. No acute fracture. Broad-based disc protrusions at C4-5-6 and to a lesser e xtent at C3-4. 2. Hypertrophic changes around the atlantoaxial articulation Objective Remarks GENERAL: Thin elderly male patient, in NAD. SKIN: Warm and dry. HEENT: Normocephalic. No nasal drainage. Mucous membranes moist. NECK: Supple, trachea midline. CARDIOVASCULAR: Regular rate and rhythm. 5/6 systolic murmur. RESPIRATORY: Nonlabored. Good air entry. Breath sounds equal bilaterally. No wheezing or rhonchi. GASTROINTESTINAL: Abdomen soft, non-tender, nondistended. MUSCULOSKELETAL: No obvious deformities. No edema noted. NEUROLOGIC: Awake with eyes closed. severe dementia, confused. Able to move all extremities spontaneously. Does not participate in strength testing. Procedures None A/P Assessment and Plan 72-year-old male with history of dementia, severe aortic stenosis and type 2 diabetes mellitus being admitted at the psych unit for aggression towards family. During his J-pod admission, patient had a fall, imaging was negative. We were consulted for medical comanagement. Dementia, aggressive behavior -management per psychiatry -RPR negative Fall CT scan of the spine including cervical, lumbar and thoracic were unremarkable. Head CT scan unremarkable. Chest x-ray and pelvis x-ray negative. Sitter at bedside -PT eval/tx -fall precautions Hypertension, uncontrolled -BP elevated, will increase lisinopril to 10 mg daily. -p.o. Clonidine prn with parameters -continue to monitor BP and adjust treatment accordingly Dyslipidemia -continue statin therapy Aortic stenosis, chronic -maintain tight BP control -follow-up as outpatient DM -change to heart healthy diabetic diet -accuchecks and ISS, blood sugars well controlled, change Accu-Cheks to twice daily. Microcytic, hypochromic anemia, appears chronic, stable TSH, B12 and folate levels WNL 11/14 -monitor DVT prophylaxis -patient is ambulatory Discussed with nursing staff. Dilan Falcon Mar 10, 2018 12:46
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
[2018-03-10] MEDS: QUEtiapine FUMARATE 200 MG TAB PO SCH (20:44)
[2018-03-11] MEDS: INSULIN ASPART SUPPLEMENTAL SCALE SQ SCH ×2 (06:39→16:45)
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
[2018-03-11] MEDS: ASPIRIN EC 81 MG TABEC PO SCH (10:16)
[2018-03-11] MEDS: LISINOPRIL 10 MG TAB PO SCH (10:16)
[2018-03-11] MEDS: ATORVASTATIN 40 MG TAB PO SCH (10:16)
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
[2018-03-11] MEDS: QUEtiapine FUMARATE 100 MG TAB PO SCH ×2 (11:43→17:00)
[2018-03-11] MEDS: cloNIDine HCL 0.1 MG/24 HR PATCH T-DERMAL SCH (16:59)
[2018-03-11 20:00] VITALS: BP 110/64
[2018-03-11] MEDS: QUEtiapine FUMARATE 200 MG TAB PO SCH (20:15)
[2018-03-11] MEDS: hydrOXYzine HCL 50 MG TAB PO PRN (20:15)
[2018-03-11] MEDS: ACETAMINOPHEN 325 MG TAB PO PRN (20:15)
[2018-03-12 05:21] VITALS: BP 154/70; PULSE 62; RESP 18; TEMP 97.9; O2SAT 97
[2018-03-12] MEDS: INSULIN ASPART SUPPLEMENTAL SCALE SQ SCH ×2 (06:41→10:56)
[2018-03-12] MEDS: ATORVASTATIN 40 MG TAB PO SCH (08:43)
[2018-03-12] MEDS: ASPIRIN EC 81 MG TABEC PO SCH (08:43)
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
[2018-03-12] MEDS: QUEtiapine FUMARATE 100 MG TAB PO SCH ×2 (12:00→17:26)
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
[2018-03-12 21:13] LABS: BACTERIA, URINE FEW /hpf; BILIRUBIN, URINE NEG (NEG); BLOOD, URINE SMALL (NEG); GLUCOSE,URINE NEG (NEG); KETONE, URINE NEG (NEG); MUCUS URINE FEW /lpf (OCC); NITRITE,URINE POS (NEG); SQUAMOUS EPITHELIAL CELL URINE <1 /hpf (0-5); URINE COLOR YELLOW (YELLW/STRAW); URINE LEUKOCYTE ESTERASE LARGE (NEG); WHITE BLOOD CELL CLUMPS FEW
[2018-03-12 21:15] LABS: BICARBONATE 24.8 MEQ/L (21.0-32.0); CALCIUM 8.6 MG/DL (8.5-10.1); CREATININE 1.24 MG/DL (0.60-1.30)
[2018-03-12] MEDS: QUEtiapine FUMARATE 200 MG TAB PO SCH (21:50)
[2018-03-13 06:54] VITALS: BP 108/56; PULSE 50; RESP 17; TEMP 97.2; O2SAT 94
[2018-03-13] MEDS: INSULIN ASPART SUPPLEMENTAL SCALE SQ SCH ×2 (06:54→16:00)
[2018-03-13] MEDS: ATORVASTATIN 40 MG TAB PO SCH (08:42)
[2018-03-13] MEDS: ASPIRIN EC 81 MG TABEC PO SCH (08:42)
[2018-03-13] MEDS: QUEtiapine FUMARATE 100 MG TAB PO SCH ×2 (11:16→17:40)
[2018-03-13] MEDS ORDERED: CEFUROXIME AXETIL 250 MG TAB PO SCH (11:30)
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
[2018-03-13] MEDS: cefTRIAXone INJ 1,000 MG in SODIUM CHLORIDE 0.9% INJ 100 ML IV SCH (15:00)
[2018-03-13] MEDS ORDERED: HALOPERIDOL LACTATE 5 MG/ML AMP ONE (15:46)
[2018-03-13] MEDS ORDERED: HALOPERIDOL LACTATE 5 MG/ML AMP IM ONE (16:15)
[2018-03-13] MEDS ORDERED: OLANZapine IM 10 MG VIAL IM ONE (17:30)
[2018-03-13] MEDS: hydrOXYzine HCL 50 MG TAB PO PRN ×2 (20:49→20:55)
[2018-03-13] MEDS: diphenhydrAMINE HCL 50 MG CAP PO PRN ×2 (20:49→20:55)
[2018-03-13] MEDS: QUEtiapine FUMARATE 200 MG TAB PO SCH ×2 (20:49→20:55)
[2018-03-14 05:01] VITALS: BP 148/64; PULSE 64; RESP 18; TEMP 98.4; O2SAT 94
[2018-03-14] MEDS: INSULIN ASPART SUPPLEMENTAL SCALE SQ SCH ×2 (06:21→16:00)
[2018-03-14 07:54] LABS: AUTOMATED NEUTROPHIL # 7.6 TH/MM3 (1.8-7.7); BASOPHIL # 0.1 TH/MM3 (0-0.2); BASOPHIL % 0.5 % (0.0-2.0); EOSINOPHIL # 0.1 TH/MM3 (0-0.4); EOSINOPHIL % 0.9 % (0.0-4.0); HEMATOCRIT 32.7 % (39.0-51.0); HEMOGLOBIN 10.4 GM/DL (13.0-17.0); LYMPH % 18.5 % (9.0-44.0); LYMPHOCYTE # 1.9 TH/MM3 (1.0-4.8); MEAN CELL VOLUME 75.6 FL (80.0-100.0); MEAN CORPUSCULAR HEMOGLOBIN 24.1 PG (27.0-34.0); MEAN CORPUSCULAR HGB CONC 31.9 % (32.0-36.0); MEAN PLATELET VOLUME 8.9 FL (7.0-11.0); MONO % 6.1 % (0.0-8.0); MONOCYTE # 0.6 TH/MM3 (0-0.9); PLATELET COUNT 246 TH/MM3 (150-450); RED BLOOD COUNT 4.32 MIL/MM3 (4.50-5.90); RED CELL DISTRIBUTION WIDTH 16.6 % (11.6-17.2); WHITE BLOOD COUNT 10.2 TH/MM3 (4.0-11.0)
[2018-03-14 08:14] LABS: BICARBONATE 23.6 MEQ/L (21.0-32.0); CALCIUM 9.4 MG/DL (8.5-10.1); CREATININE 1.08 MG/DL (0.60-1.30)
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
[2018-03-14] MEDS: ASPIRIN EC 81 MG TABEC PO SCH (09:46)
[2018-03-14] MEDS: ATORVASTATIN 40 MG TAB PO SCH (09:46)
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
[2018-03-14] MEDS: HALOPERIDOL LACTATE ORAL CONC 10 MG/5 ML CUP PO SCH ×2 (14:10→17:25)
[2018-03-14] MEDS: cefTRIAXone INJ 1,000 MG in SODIUM CHLORIDE 0.9% INJ 100 ML IV SCH (16:47)
[2018-03-14] MEDS: HALOPERIDOL LACTATE 5 MG/ML AMP IM PRN ×2 (16:56→17:25)
[2018-03-14 18:00] VITALS: BP 119/60; PULSE 79; TEMP 98.1; O2SAT 98
[2018-03-15 05:34] VITALS: BP 167/71; PULSE 63; TEMP 98.9; O2SAT 96
[2018-03-15] MEDS: INSULIN ASPART SUPPLEMENTAL SCALE SQ SCH ×2 (05:49→16:57)
[2018-03-15] MEDS: ATORVASTATIN 40 MG TAB PO SCH (09:36)
[2018-03-15] MEDS: HALOPERIDOL LACTATE ORAL CONC 10 MG/5 ML CUP PO SCH ×3 (09:36→21:30)
[2018-03-15] MEDS: ASPIRIN EC 81 MG TABEC PO SCH (09:36)
[2018-03-15] MEDS: HALOPERIDOL LACTATE 5 MG/ML AMP IM PRN ×2 (09:42→14:28)
[2018-03-15] MEDS ORDERED: ENALAPRILAT 1.25 MG/ML VIAL IV PUSH PRN (13:15)
--- NOTE | 2018-03-15 13:19 | HHI.PR ---
Subjective Remarks Follow-up on patient with dementia, hypertension, diabetes, UTI. Patient seen and examined. Patient remains severely confused and speech is nonsensical. Sitter is at the bedside. Discussed with nursing staff, patient refused dinner and and ate maybe 25-50% of breakfast. Objective Vitals Vital Signs Date Time Temp Pulse Resp B/P (MAP) Pulse Ox O2 Delivery O2 Flow Rate FiO2 03/15/18 05:34 98.9 63 167/71 (103) 96 03/14/18 18:00 98.1 79 119/60 (79) 98 I/O 03/14/18 03/14/18 03/14/18 03/15/18 03/15/18 03/15/18 07:00 15:00 23:00 07:00 15:00 23:00 Intake Total 240 ml 240 ml Balance 240 ml 240 ml Intake Oral 240 ml 240 ml # Voids 3 3 3 Result Diagram: 03/14/1872103/14/18721 Imaging Last Impressions Thoracic Spine CT 03/06/181526 Signed Impressions: CONCLUSION: 1. No acute findings. Pelvis X-Ray 03/06/181526 Signed Impressions: CONCLUSION: No acute findings. Lumbar Spine CT 03/06/181526 Signed Impressions: CONCLUSION: 1. No acute fracture. At L4-5 there is a large broad-based disc protrusion wit h at least moderate canal stenosis. 2. Broad-based disc bulges at L3-4 and L5-S1 with bilateral foraminal stenosis at L5-S1. Head CT 03/06/181526 Signed Impressions: CONCLUSION: 1. 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 No acute intracranial hemorrhage, mass effect or shift. No acute bony abnormality. Chest X-Ray 03/06/181526 Signed Impressions: CONCLUSION: No acute findings. Cervical Spine CT 03/06/181526 Signed Impressions: CONCLUSION: 1. No acute fracture. Broad-based disc protrusions at C4-5-6 and to a lesser e xtent at C3-4. 2. Hypertrophic changes around the atlantoaxial articulation Objective Remarks GENERAL: Well-developed thin elderly male lying in hospital bed, in no acute distress. Awake. Severe dementia. Sitter is at the bedside. SKIN: Warm and dry. No generalized rash. HEENT: Normocephalic. No scleral icterus. No injection or drainage. No nasal drainage. MMM. NECK: Supple, trachea midline. CARDIOVASCULAR: Regular rate and rhythm. +5/6 holosystolic murmur. RESPIRATORY: Nonlabored. Good air entry. Breath sounds equal bilaterally. No wheezing or rhonchi. GASTROINTESTINAL: Abdomen soft, non-tender, nondistended. MUSCULOSKELETAL: No obvious deformities. No edema noted. NEUROLOGIC: Awake. Severe dementia, significantly confused. Able to move all extremities spontaneously. Nonsensical speech. PSYCHIATRIC: Calm and cooperative. Insight and judgement poor. Procedures None A/P Assessment and Plan 72-year-old male with history of dementia, severe aortic stenosis and type 2 diabetes mellitus being admitted at the psych unit for aggression towards family. During his J-pod admission, patient had a fall, imaging was negative. We were consulted for medical comanagement. Dementia, aggressive behavior, acute, improved some Medication noncompliance -management per psychiatry -RPR and TSH WNL Citrobacter Koseri UTI, pansensitive, acute -pansensitive on culture but patient refusing oral medications -continue on IV Ceftriaxone Poor po intake -Consult storekeeper steward, calorie count -consider adding Megace, however patient has been refusing oral medications s/p fall in jpod, all imaging negative, acute Sitter at bedside -evaluated by PT, no PT needed at discharge but requires supervision -fall precautions Hypertension, chronic Uncontrolled, secondary to medication noncompliance -continue on Clonidine patch -Vasotec IV prn with parameters -continue to monitor BP and adjust treatment accordingly Dyslipidemia, chronic -continue statin therapy Aortic stenosis, chronic -maintain tight BP control -follow-up as outpatient DM, chronic -continue on heart healthy diabetic diet -accuchecks and ISS Microcytic, hypochromic anemia, appears chronic, stable TSH, B12 and folate levels WNL 11/14 No e/o bleeding -monitor DVT prophylaxis -patient is ambulatory Leanna Puente Mar 15, 2018 13:19
[2018-03-15] MEDS ORDERED: WALKER WHEELS/F1 MIS (13:22)
--- NOTE | 2018-03-15 17:04 | HHI.PYPN ---
Subjective Chief Complaint: Patient with dementia aggressive and assaultive at home Remarks Patient seen in his bed with nurse Adrien, patient continues in for point restraints, continues to refuse all oral medications. Patient though is alert diffusely confused and irritable with me talking basically in gibberish. We will increase Haldol to 10 mg p.o. twice daily and if refuses than 10 mg IM in its place Review of Systems Except as stated in HPI: all other systems reviewed are Neg Mental Status Examination Appearance: Disheveled Consciousness: Other (Drowsy to arousable secondary to ETO) Orientation: Person Motor Activity: Other (Patient Eufemia chair) Speech: Incoherent Language: Other (Poor) Fund of Knowledge: Poor Attention and Concentration: Easily Distracted Memory: Impaired Mood: Irritable Affect: Other (Decreased range and intensity) Thought Process & Associations: Disorganized Hallucination Type: None Delusion Type: None Suicidal Ideation: No Suicidal Plan: No Suicidal Intention: No Homicidal Ideation: No Homicidal Plan: No Homicidal Intention: No Insight: Poor Judgment: Poor Results Labs Date/Time Source Procedure Growth Status 03/12/18 20:30 Urine Clean Catch Urine Culture - Final Citrobacter Koseri Complete Vitals/IOs Vital Signs Date Time Temp Pulse Resp B/P (MAP) Pulse Ox O2 Delivery O2 Flow Rate FiO2 03/15/18 05:34 98.9 63 167/71 (103) 96 03/14/18 05:01 18 Intake and Output 03/15/18 03/15/18 03/16/18 08:00 16:00 00:00 Intake Total 240 ml Balance 240 ml Assessment & Plan Problem List: (1) ALZHEIMER'S DISEASE WITH LATE ONSET ICD Codes: G30.1 - ALZHEIMER'S DISEASE WITH LATE ONSET (2) DEMENTIA IN OTH DISEASES CLASSD ELSWHR W BEHAVIORAL DISTURB ICD Codes: F02.81 - DEMENTIA IN OTH DISEASES CLASSD ELSWHR W BEHAVIORAL DISTURB Assessment & Plan Estimated LOS: days patient continues confused demented though now with continued refusal to take or any oral medication increased paranoia and agitation she medication adjustment above Justification for Cont. Inpt. At this time patient would decompensate a place to the lower level of care Discharge Planning To be determined Tejas Bee MD Mar 15, 2018 17:04
[2018-03-15] MEDS: cefTRIAXone INJ 1,000 MG in SODIUM CHLORIDE 0.9% INJ 100 ML IV SCH (17:13)
[2018-03-15] MEDS ORDERED: HALOPERIDOL LACTATE 5 MG/ML AMP IM PRN (17:15)
[2018-03-15 18:07] VITALS: BP 177/73; PULSE 63; RESP 16; TEMP 98.7; O2SAT 97
[2018-03-16 05:18] VITALS: BP 177/75; PULSE 56; RESP 15; TEMP 97.3; O2SAT 94
[2018-03-16] MEDS: INSULIN ASPART SUPPLEMENTAL SCALE SQ SCH (07:00)
[2018-03-16] MEDS ORDERED: ENALAPRILAT 1.25 MG/ML VIAL IV PUSH PRN (07:15)
--- NOTE | 2018-03-16 08:17 | HHI.PR ---
Subjective Remarks Follow-up on patient with dementia, hypertension, diabetes, UTI. Patient seen and examined. Patient is in four-point soft restraints. Sitter is at the bedside. Patient remains significantly confused with nonsensical speech. Discussed with nursing staff, patient refusing medications, not eating well. Objective Vitals Vital Signs Date Time Temp Pulse Resp B/P (MAP) Pulse Ox O2 Delivery O2 Flow Rate FiO2 03/16/18 05:18 97.3 56 15 177/75 (109) 94 03/15/18 18:07 98.7 63 16 177/73 (107) 97 I/O 03/15/18 03/15/18 03/15/18 03/16/18 03/16/18 03/16/18 07:00 15:00 23:00 07:00 15:00 23:00 Intake Total 240 ml 240 ml 60 ml 600 ml Balance 240 ml 240 ml 60 ml 600 ml Intake Oral 240 ml 240 ml 60 ml 600 ml # Voids 3 3 3 Result Diagram: 03/14/1872103/14/18721 Imaging Last Impressions Thoracic Spine CT 03/06/181526 Signed Impressions: CONCLUSION: 1. No acute findings. Pelvis X-Ray 03/06/181526 Signed Impressions: CONCLUSION: No acute findings. Lumbar Spine CT 03/06/181526 Signed Impressions: CONCLUSION: 1. No acute fracture. At L4-5 there is a large broad-based disc protrusion wit h at least moderate canal stenosis. 2. Broad-based disc bulges at L3-4 and L5-S1 with bilateral foraminal stenosis at L5-S1. Head CT 03/06/181526 Signed Impressions: CONCLUSION: 1. 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 No acute intracranial hemorrhage, mass effect or shift. No acute bony abnormality. Chest X-Ray 03/06/181526 Signed Impressions: CONCLUSION: No acute findings. Cervical Spine CT 03/06/181526 Signed Impressions: CONCLUSION: 1. No acute fracture. Broad-based disc protrusions at C4-5-6 and to a lesser e xtent at C3-4. 2. Hypertrophic changes around the atlantoaxial articulation Objective Remarks GENERAL: Well-developed thin elderly male lying in hospital bed, in no acute distress. Awake. Severe dementia. Babbling nonsensically. Sitter is at the bedside. In four-point soft restraints. SKIN: Warm and dry. No generalized rash. HEENT: Normocephalic. No scleral icterus. No injection or drainage. No nasal drainage. MMM. NECK: Supple, trachea midline. CARDIOVASCULAR: Regular rate and rhythm. +5/6 holosystolic murmur. RESPIRATORY: Nonlabored. Good air entry. Breath sounds equal bilaterally. No wheezing or rhonchi. GASTROINTESTINAL: Abdomen soft, non-tender, nondistended. MUSCULOSKELETAL: No obvious deformities. No edema noted. NEUROLOGIC: Awake. Severe dementia, significantly confused. Able to move all extremities spontaneously. Nonsensical speech. PSYCHIATRIC: Calm and cooperative. Insight and judgement poor. Procedures None A/P Assessment and Plan 72-year-old male with history of dementia, severe aortic stenosis and type 2 diabetes mellitus being admitted at the psych unit for aggression towards family. During his J-pod admission, patient had a fall, imaging was negative. We were consulted for medical comanagement. Dementia, aggressive behavior, acute, improved some Medication noncompliance -management per psychiatry -RPR and TSH WNL Citrobacter Koseri UTI, pansensitive, acute -pansensitive on culture but patient refusing oral medications -continue on IV Ceftriaxone Poor po intake -Program Support Assistant consulted, calorie count in progress -consider adding Megace, however patient has been refusing oral medications s/p fall in jpod, all imaging negative, acute Sitter at bedside -evaluated by PT, no PT needed at discharge but requires supervision -fall precautions Hypertension, chronic Uncontrolled, secondary to medication noncompliance and agitation -continue on Clonidine patch -Vasotec IV prn with parameters -continue to monitor BP and adjust treatment accordingly Dyslipidemia, chronic -continue statin therapy Aortic stenosis, chronic -maintain tight BP control -follow-up as outpatient DM, chronic -continue on heart healthy diabetic diet -accuchecks and ISS Microcytic, hypochromic anemia, appears chronic, stable TSH, B12 and folate levels WNL 11/14 No e/o bleeding -monitor DVT prophylaxis -patient is ambulatory Leanna Puente Mar 16, 2018 08:17
[2018-03-16] MEDS: ASPIRIN EC 81 MG TABEC PO SCH ×2 (09:00→09:27)
[2018-03-16] MEDS: HALOPERIDOL LACTATE ORAL CONC 10 MG/5 ML CUP PO SCH ×2 (09:26→20:39)
[2018-03-16] MEDS: ATORVASTATIN 40 MG TAB PO SCH ×2 (09:26→09:31)
[2018-03-16] MEDS: LISINOPRIL 10 MG TAB PO SCH ×2 (09:27→09:32)
[2018-03-16] MEDS: cefTRIAXone INJ 1,000 MG in SODIUM CHLORIDE 0.9% INJ 100 ML IV SCH (15:00)
--- NOTE | 2018-03-16 15:33 | HHI.PYPN ---
Subjective Chief Complaint: Patient with dementia aggressive and assaultive at home Remarks Patient is seen in his room patient continues in four-point restraints, he is alert diffusely confused babbling and counts pretty sensibly in [place]oc[place]. He continues to refuse all oral medications, has been accepting the Haldol Review of Systems Except as stated in HPI: all other systems reviewed are Neg Mental Status Examination Appearance: Disheveled Consciousness: Other (Drowsy to arousable secondary to ETO) Orientation: Person Motor Activity: Other (Patient Eufemia chair) Speech: Incoherent Language: Other (Poor) Fund of Knowledge: Poor Attention and Concentration: Easily Distracted Memory: Impaired Mood: Irritable Affect: Other (Decreased range and intensity) Thought Process & Associations: Disorganized Hallucination Type: None Delusion Type: None Suicidal Ideation: No Suicidal Plan: No Suicidal Intention: No Homicidal Ideation: No Homicidal Plan: No Homicidal Intention: No Insight: Poor Judgment: Poor Results Labs Date/Time Source Procedure Growth Status 03/12/18 20:30 Urine Clean Catch Urine Culture - Final Citrobacter Koseri Complete Vitals/IOs Vital Signs Date Time Temp Pulse Resp B/P (MAP) Pulse Ox O2 Delivery O2 Flow Rate FiO2 03/16/18 05:18 97.3 56 15 177/75 (109) 94 Intake and Output 03/16/18 03/16/18 03/17/18 08:00 16:00 00:00 Intake Total 660 ml 1560 ml Balance 660 ml 1560 ml Assessment & Plan Problem List: (1) ALZHEIMER'S DISEASE WITH LATE ONSET ICD Codes: G30.1 - ALZHEIMER'S DISEASE WITH LATE ONSET (2) DEMENTIA IN OTH DISEASES CLASSD ELSWHR W BEHAVIORAL DISTURB ICD Codes: F02.81 - DEMENTIA IN OTH DISEASES CLASSD ELSWHR W BEHAVIORAL DISTURB Assessment & Plan Estimated LOS: days patient continues confused and demented, so refusing all oral medications continues markedly paranoid. For now continue treatment Justification for Cont. Inpt. At this point patient would decompensate a place to the lower level of care Discharge Planning To be determined Tejas Bee MD Mar 16, 2018 15:33
[2018-03-16 18:24] VITALS: BP 153/75; PULSE 87; RESP 18; TEMP 99.1; O2SAT 96
[2018-03-17] MEDS: INSULIN ASPART SUPPLEMENTAL SCALE SQ SCH (06:01)
[2018-03-17 06:36] VITALS: BP 169/72; PULSE 54; RESP 18; TEMP 96.8; O2SAT 96
[2018-03-17] MEDS: HALOPERIDOL LACTATE ORAL CONC 10 MG/5 ML CUP PO SCH ×2 (08:05→21:26)
[2018-03-17] MEDS: ASPIRIN EC 81 MG TABEC PO SCH (08:06)
--- NOTE | 2018-03-17 09:37 | HHI.PR ---
Subjective Remarks The patient was resting in bed. He opened his eyes but was not communicating. He appeared comfortable. Sitter at the bedside stated that he was sitting in the chair earlier. Objective Vitals Vital Signs Date Time Temp Pulse Resp B/P (MAP) Pulse Ox O2 Delivery O2 Flow Rate FiO2 03/17/18 06:36 96.8 54 18 169/72 (104) 96 03/16/18 18:24 99.1 87 18 153/75 (101) 96 I/O 03/16/18 03/16/18 03/16/18 03/17/18 03/17/18 03/17/18 07:00 15:00 23:00 07:00 15:00 23:00 Intake Total 60 ml 2160 ml 600 ml Balance 60 ml 2160 ml 600 ml Intake Oral 60 ml 2160 ml 600 ml # Voids 3 2 # Bowel Movements 1 Result Diagram: 03/14/1872103/14/18721 Imaging Last Impressions Thoracic Spine CT 03/06/181526 Signed Impressions: CONCLUSION: 1. No acute findings. Pelvis X-Ray 03/06/181526 Signed Impressions: CONCLUSION: No acute findings. Lumbar Spine CT 03/06/181526 Signed Impressions: CONCLUSION: 1. No acute fracture. At L4-5 there is a large broad-based disc protrusion wit h at least moderate canal stenosis. 2. Broad-based disc bulges at L3-4 and L5-S1 with bilateral foraminal stenosis at L5-S1. Head CT 03/06/181526 Signed Impressions: CONCLUSION: 1. 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 No acute intracranial hemorrhage, mass effect or shift. No acute bony abnormality. Chest X-Ray 03/06/181526 Signed Impressions: CONCLUSION: No acute findings. Cervical Spine CT 03/06/181526 Signed Impressions: CONCLUSION: 1. No acute fracture. Broad-based disc protrusions at C4-5-6 and to a lesser e xtent at C3-4. 2. Hypertrophic changes around the atlantoaxial articulation Objective Remarks GENERAL: Resting comfortably. SKIN: Warm and dry. No generalized rash. HEENT: Normocephalic. No scleral icterus. No injection or drainage. No nasal drainage. MMM. NECK: Supple, trachea midline. CARDIOVASCULAR: Regular rate and rhythm. Harsh holosystolic murmur. RESPIRATORY: Nonlabored. Good air entry. Breath sounds equal bilaterally. No wheezing or rhonchi. GASTROINTESTINAL: Abdomen soft, non-tender, nondistended. MUSCULOSKELETAL: No obvious deformities. No edema noted. NEUROLOGIC: Lethargic. Able to move all extremities spontaneously. Procedures None A/P Assessment and Plan 72-year-old male with history of dementia, severe aortic stenosis and type 2 diabetes mellitus being admitted to the psych unit for aggression towards family. During his J-pod admission, patient had a fall, imaging was negative. We were consulted for medical comanagement. Dementia, aggressive behavior, acute, improved some Medication noncompliance -management per psychiatry -RPR and TSH WNL Citrobacter Koseri UTI, pansensitive, acute -pansensitive on culture but patient refusing oral medications -continue on IV Ceftriaxone. D/c 03/19. Poor po intake -Sterile Processing Manager consulted, calorie count in progress. Recs expected 03/18. -consider adding Megace, however patient has been refusing oral medications s/p fall in jpod, all imaging negative, acute Sitter at bedside -evaluated by PT, no PT needed at discharge but requires supervision -fall precautions Hypertension, chronic Uncontrolled, secondary to medication noncompliance and agitation -continue on Clonidine patch. Increase if needed. -Vasotec IV prn with parameters -continue to monitor BP and adjust treatment accordingly Dyslipidemia, chronic -continue statin therapy Aortic stenosis, chronic -maintain tight BP control -follow-up as outpatient DM, chronic -continue on heart healthy diabetic diet - d/c sliding scale as sugars have been well controlled. Microcytic, hypochromic anemia, appears chronic, stable TSH, B12 and folate levels WNL No e/o bleeding -monitor DVT prophylaxis -patient is ambulatory Steve Arguelles DO Mar 17, 2018 09:37
[2018-03-17] MEDS ORDERED: HALOPERIDOL LACTATE 5 MG/ML AMP IM PRN (14:15)
--- NOTE | 2018-03-17 14:19 | HHI.PYPN ---
Subjective Chief Complaint: Patient with dementia aggressive and assaultive at home Remarks Patient is seen in his room with sitter nurse less, chart reviewed, patient continues to refuse oral medications but staff was able to give him his Haldol lactate And other food. Patient behavior is softening somewhat he is now out of his restraints, he still is incontinent there is able to be walk to the bathroom to be toileted. He still was markedly confused babbling and Neal. For now we will increase Haldol to 15 mg twice daily Review of Systems Except as stated in HPI: all other systems reviewed are Neg Mental Status Examination Appearance: Disheveled Consciousness: Other (Drowsy to arousable secondary to ETO) Orientation: Person Motor Activity: Other (Patient Eufemia chair) Speech: Incoherent Language: Other (Poor) Fund of Knowledge: Poor Attention and Concentration: Easily Distracted Memory: Impaired Mood: Irritable Affect: Other (Decreased range and intensity) Thought Process & Associations: Disorganized Hallucination Type: None Delusion Type: None Suicidal Ideation: No Suicidal Plan: No Suicidal Intention: No Homicidal Ideation: No Homicidal Plan: No Homicidal Intention: No Insight: Poor Judgment: Poor Results Labs Date/Time Source Procedure Growth Status 03/12/18 20:30 Urine Clean Catch Urine Culture - Final Citrobacter Koseri Complete Vitals/IOs Vital Signs Date Time Temp Pulse Resp B/P (MAP) Pulse Ox O2 Delivery O2 Flow Rate FiO2 03/17/18 06:36 96.8 54 18 169/72 (104) 96 Assessment & Plan Problem List: (1) ALZHEIMER'S DISEASE WITH LATE ONSET ICD Codes: G30.1 - ALZHEIMER'S DISEASE WITH LATE ONSET (2) DEMENTIA IN OTH DISEASES CLASSD ELSWHR W BEHAVIORAL DISTURB ICD Codes: F02.81 - DEMENTIA IN OTH DISEASES CLASSD ELSWHR W BEHAVIORAL DISTURB Assessment & Plan Estimated LOS: days patient remains diffusely confused disoriented, though his behaviors somewhat under better control, he is now out of restraints. He is able to walk to the bathroom. She medication adjustment above Justification for Cont. Inpt. At this time patient would decompensate a place to the lower level of care Discharge Planning To be determined perhaps somewhat some Tejas Bee MD Mar 17, 2018 14:19
[2018-03-17] MEDS: cefTRIAXone INJ 1,000 MG in SODIUM CHLORIDE 0.9% INJ 100 ML IV SCH (15:08)
[2018-03-17] MEDS: hydrOXYzine HCL 50 MG TAB PO PRN (15:18)
[2018-03-17 18:00] VITALS: BP 124/68; PULSE 52; RESP 17; TEMP 98.7; O2SAT 98
[2018-03-18 06:48] VITALS: BP 141/66; PULSE 56; RESP 17; TEMP 98.1; O2SAT 95
--- NOTE | 2018-03-18 08:20 | HHI.PYPN ---
Subjective Chief Complaint: Patient with dementia aggressive and assaultive at home Remarks Patient seen in his room with floor staff, chart reviewed, patient compliant medications patient calmer today no longer in soft restraints, he is more alert though continues diffusely confused babbling in American. Continues to need significant redirection and assistance Review of Systems Except as stated in HPI: all other systems reviewed are Neg Mental Status Examination Appearance: Disheveled Consciousness: Other (Drowsy to arousable secondary to ETO) Orientation: Person Motor Activity: Other (Patient Eufemia chair) Speech: Incoherent Language: Other (Poor) Fund of Knowledge: Poor Attention and Concentration: Easily Distracted Memory: Impaired Mood: Irritable Affect: Other (Decreased range and intensity) Thought Process & Associations: Disorganized Hallucination Type: None Delusion Type: None Suicidal Ideation: No Suicidal Plan: No Suicidal Intention: No Homicidal Ideation: No Homicidal Plan: No Homicidal Intention: No Insight: Poor Judgment: Poor Results Labs Date/Time Source Procedure Growth Status 03/12/18 20:30 Urine Clean Catch Urine Culture - Final Citrobacter Koseri Complete Vitals/IOs Vital Signs Date Time Temp Pulse Resp B/P (MAP) Pulse Ox O2 Delivery O2 Flow Rate FiO2 03/18/18 06:48 98.1 56 17 141/66 (91) 95 Intake and Output 03/18/18 03/18/18 03/19/18 08:00 16:00 00:00 Intake Total 0 ml Balance 0 ml Assessment & Plan Problem List: (1) ALZHEIMER'S DISEASE WITH LATE ONSET ICD Codes: G30.1 - ALZHEIMER'S DISEASE WITH LATE ONSET (2) DEMENTIA IN OTH DISEASES CLASSD ELSWHR W BEHAVIORAL DISTURB ICD Codes: F02.81 - DEMENTIA IN OTH DISEASES CLASSD ELSWHR W BEHAVIORAL DISTURB Assessment & Plan Estimated LOS: days patient continues confused and demented, though behaviors are somewhat calmer he is no longer in soft restraints Justification for Cont. Inpt. At this time patient would decompensate if placed in a lower level of care Discharge Planning To be determined Tejas Bee MD Mar 18, 2018 08:20
[2018-03-18] MEDS: HALOPERIDOL LACTATE ORAL CONC 10 MG/5 ML CUP PO SCH ×2 (09:00→20:34)
[2018-03-18] MEDS: ASPIRIN EC 81 MG TABEC PO SCH (10:17)
[2018-03-18] MEDS: LISINOPRIL 10 MG TAB PO SCH (10:17)
[2018-03-18] MEDS: ATORVASTATIN 40 MG TAB PO SCH (10:18)
--- NOTE | 2018-03-18 10:28 | HHI.PR ---
Subjective Remarks Patient has no complaints. Afebrile. does not talk much. Objective Vitals Vital Signs Date Time Temp Pulse Resp B/P (MAP) Pulse Ox O2 Delivery O2 Flow Rate FiO2 03/18/18 06:48 98.1 56 17 141/66 (91) 95 03/17/18 18:00 98.7 52 17 124/68 (86) 98 I/O 03/17/18 03/17/18 03/17/18 03/18/18 03/18/18 03/18/18 07:00 15:00 23:00 07:00 15:00 23:00 Intake Total 1200 ml 0 ml 120 ml Balance 1200 ml 0 ml 120 ml Intake Oral 1200 ml 0 ml 120 ml # Voids 1 2 Result Diagram: 03/14/1872103/14/18721 Imaging Last Impressions Thoracic Spine CT 03/06/181526 Signed Impressions: CONCLUSION: 1. No acute findings. Pelvis X-Ray 03/06/181526 Signed Impressions: CONCLUSION: No acute findings. Lumbar Spine CT 03/06/181526 Signed Impressions: CONCLUSION: 1. No acute fracture. At L4-5 there is a large broad-based disc protrusion wit h at least moderate canal stenosis. 2. Broad-based disc bulges at L3-4 and L5-S1 with bilateral foraminal stenosis at L5-S1. Head CT 03/06/181526 Signed Impressions: CONCLUSION: 1. 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 No acute intracranial hemorrhage, mass effect or shift. No acute bony abnormality. Chest X-Ray 03/06/181526 Signed Impressions: CONCLUSION: No acute findings. Cervical Spine CT 03/06/181526 Signed Impressions: CONCLUSION: 1. No acute fracture. Broad-based disc protrusions at C4-5-6 and to a lesser e xtent at C3-4. 2. Hypertrophic changes around the atlantoaxial articulation Objective Remarks GENERAL: Resting comfortably. SKIN: Warm and dry. No generalized rash. HEENT: Normocephalic. No scleral icterus. No injection or drainage. No nasal drainage. MMM. NECK: Supple, trachea midline. CARDIOVASCULAR: . Harsh holosystolic murmur. RESPIRATORY: Nonlabored. Good air entry. Breath sounds equal bilaterally. No wheezing or rhonchi. GASTROINTESTINAL: Abdomen soft, non-tender, nondistended. MUSCULOSKELETAL: No obvious deformities. No edema noted. NEUROLOGIC: Lethargic. Able to move all extremities spontaneously. Procedures None A/P Problem List: (1) DEMENTIA IN OTH DISEASES CLASSD ELSWHR W BEHAVIORAL DISTURB ICD Code: F02.81 - DEMENTIA IN OTH DISEASES CLASSD ELSWHR W BEHAVIORAL DISTURB (2) UTI (urinary tract infection) ICD Code: N39.0 - Urinary tract infection, site not specified (3) Uncontrolled hypertension ICD Code: I10 - Essential (primary) hypertension (4) Fall ICD Code: W19.XXXA - Unspecified fall, initial encounter (5) Hyperlipidemia ICD Code: E78.5 - Hyperlipidemia, unspecified (6) Aortic stenosis ICD Code: I35.0 - Nonrheumatic aortic (valve) stenosis (7) Diabetes ICD Code: E11.9 - Type 2 diabetes mellitus without complications (8) Microcytic anemia ICD Code: D50.9 - Iron deficiency anemia, unspecified Assessment and Plan 72-year-old male with history of dementia, severe aortic stenosis and type 2 diabetes mellitus being admitted to the psych unit for aggression towards family. During his J-pod admission, patient had a fall, imaging was negative. We were consulted for medical comanagement. Dementia, aggressive behavior, acute, improved some Medication noncompliance -management per psychiatry -RPR and TSH WNL Citrobacter Koseri UTI, pansensitive, acute -pansensitive on culture but patient refusing oral medications -continue on IV Ceftriaxone. D/c 03/19. Poor po intake -It Administrator consulted, calorie count in progress. Recs expected 03/18. -consider adding Megace, however patient has been refusing oral medications s/p fall in jpod, all imaging negative, acute Sitter at bedside -evaluated by PT, no PT needed at discharge but requires supervision -fall precautions Hypertension, chronic Uncontrolled, secondary to medication noncompliance and agitation -continue on Clonidine patch. Increase if needed. -Vasotec IV prn with parameters -continue to monitor BP and adjust treatment accordingly Dyslipidemia, chronic -continue statin therapy Aortic stenosis, chronic -maintain tight BP control -Check 2 D echocardiogram. Consider Cardiology consultation if severe. DM, chronic -continue on heart healthy diabetic diet -Blood sugar stable. Microcytic, hypochromic anemia, appears chronic, stable -TSH, B12 and folate levels WNL -Upon review of records it is noted that the patient had iron studies with low iron, low TIBC and low percent saturation of iron. Ferritin is within normal range. Finding seems to correlate with anemia of chronic disease. Check stool guaiac. Continue to monitor hemoglobin. DVT prophylaxis -patient is ambulatory Kaiden Holt MD Mar 18, 2018 10:28
[2018-03-18] MEDS: cefTRIAXone INJ 2,000 MG in SODIUM CHLORIDE 0.9% INJ 100 ML IV SCH (15:30)
[2018-03-18] MEDS: cloNIDine HCL 0.1 MG/24 HR PATCH T-DERMAL SCH (17:00)
[2018-03-18] MEDS ORDERED: REMOVE OLD CATAPRES (CLONIDINE) PATCH T-DERMAL SCH (17:00)
[2018-03-18 18:46] VITALS: BP 143/65; PULSE 60; RESP 17; TEMP 98; O2SAT 99
[2018-03-19] MEDS: ACETAMINOPHEN 325 MG TAB PO PRN (00:08)
[2018-03-19 06:43] VITALS: BP 144/66; PULSE 55; RESP 16; TEMP 97.7; O2SAT 98
--- NOTE | 2018-03-19 10:00 | HHI.PYPN ---
Subjective Chief Complaint: Patient with dementia aggressive and assaultive at home Remarks Patient seen for follow, chart reviewed. Discussion nursing staff reported the patient has a compliant with medication eating well continues with one-to-one sitter. Patient was found lying hospital bed noted with limited cooperation with interview to nonverbal only nodding yes to questions. Patient denying any physical pain at the moment, denying constipation, unable to relate his current mood or participate concerning his orientation. Review of Systems Except as stated in HPI: all other systems reviewed are Neg Mental Status Examination Appearance: Disheveled Consciousness: Other (Drowsy to arousable secondary to ETO) Orientation: Person Motor Activity: Other (Patient Eufemia chair) Speech: Incoherent Language: Other (Poor) Fund of Knowledge: Poor Attention and Concentration: Easily Distracted Memory: Impaired Mood: Other (Restricted) Affect: Other (Decreased range and intensity) Thought Process & Associations: Disorganized Hallucination Type: None Delusion Type: None Suicidal Ideation: No Suicidal Plan: No Suicidal Intention: No Homicidal Ideation: No Homicidal Plan: No Homicidal Intention: No Insight: Poor Judgment: Poor Results Labs Date/Time Source Procedure Growth Status 03/12/18 20:30 Urine Clean Catch Urine Culture - Final Citrobacter Koseri Complete Vitals/IOs Vital Signs Date Time Temp Pulse Resp B/P (MAP) Pulse Ox O2 Delivery O2 Flow Rate FiO2 03/19/18 06:43 97.7 55 16 144/66 (92) 98 Intake and Output 03/19/18 03/19/18 03/20/18 08:00 16:00 00:00 Intake Total 0 ml Balance 0 ml Assessment & Plan Problem List: (1) ALZHEIMER'S DISEASE WITH LATE ONSET ICD Codes: G30.1 - ALZHEIMER'S DISEASE WITH LATE ONSET (2) DEMENTIA IN OTH DISEASES CLASSD ELSWHR W BEHAVIORAL DISTURB ICD Codes: F02.81 - DEMENTIA IN OTH DISEASES CLASSD ELSWHR W BEHAVIORAL DISTURB Assessment & Plan Patient this time with nonverbal to medication and simply nodding. Patient has not had any aggressive behavior recently has one-to-one sitter for safety. We will continue current treatment. Continue monitor mood and behavior. Discharge planning in progress. Justification for Cont. Inpt. At risk for further decompensation if at lower level of care Leandro Fisher MD Mar 19, 2018 10:00
[2018-03-19] MEDS: ASPIRIN EC 81 MG TABEC PO SCH (10:06)
[2018-03-19] MEDS: ATORVASTATIN 40 MG TAB PO SCH (10:07)
[2018-03-19] MEDS: LISINOPRIL 10 MG TAB PO SCH (10:07)
[2018-03-19] MEDS: HALOPERIDOL LACTATE ORAL CONC 10 MG/5 ML CUP PO SCH ×2 (10:07→20:21)
--- NOTE | 2018-03-19 10:24 | HHI.PR ---
Subjective Remarks Patient remains nonverbal today No current complaints Discussed with RN Kylee states that patient keeps wanting to go to the bathroom but not having much urine output when he tries to urinate Objective Vitals Vital Signs Date Time Temp Pulse Resp B/P (MAP) Pulse Ox O2 Delivery O2 Flow Rate FiO2 03/19/18 06:43 97.7 55 16 144/66 (92) 98 03/18/18 18:46 98.0 60 17 143/65 (91) 99 I/O 03/18/18 03/18/18 03/18/18 03/19/18 03/19/18 03/19/18 07:00 15:00 23:00 07:00 15:00 23:00 Intake Total 0 ml 360 ml 1320 ml 0 ml 360 ml Balance 0 ml 360 ml 1320 ml 0 ml 360 ml Intake Oral 0 ml 360 ml 1320 ml 0 ml 360 ml # Voids 2 2 2 # Bowel Movements 1 Imaging Last Impressions Thoracic Spine CT 03/06/181526 Signed Impressions: CONCLUSION: 1. No acute findings. Pelvis X-Ray 03/06/181526 Signed Impressions: CONCLUSION: No acute findings. Lumbar Spine CT 03/06/181526 Signed Impressions: CONCLUSION: 1. No acute fracture. At L4-5 there is a large broad-based disc protrusion wit h at least moderate canal stenosis. 2. Broad-based disc bulges at L3-4 and L5-S1 with bilateral foraminal stenosis at L5-S1. Head CT 03/06/181526 Signed Impressions: CONCLUSION: 1. 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 No acute intracranial hemorrhage, mass effect or shift. No acute bony abnormality. Chest X-Ray 03/06/181526 Signed Impressions: CONCLUSION: No acute findings. Cervical Spine CT 03/06/181526 Signed Impressions: CONCLUSION: 1. No acute fracture. Broad-based disc protrusions at C4-5-6 and to a lesser e xtent at C3-4. 2. Hypertrophic changes around the atlantoaxial articulation Objective Remarks GENERAL: Patient remains confused not talkative at this time not verbal SKIN: Warm and dry. HEAD: Atraumatic. Normocephalic. EYES: Pupils equal and round. No scleral icterus. No injection or drainage. ENT: No nasal bleeding or discharge. Mucous membranes pink and moist. NECK: Trachea midline. No JVD. CARDIOVASCULAR: Regular rate and rhythm. S1-S2 no S3 or S4 RESPIRATORY: No accessory muscle use. Clear to auscultation. Breath sounds equal bilaterally. GASTROINTESTINAL: Abdomen soft, non-tender, nondistended. Hepatic and splenic margins not palpable. MUSCULOSKELETAL: Extremities without clubbing, cyanosis, or edema. No obvious deformities. NEUROLOGICAL: Awake and alert. No obvious cranial nerve deficits. Motor grossly within normal limits. Five out of 5 muscle strength in the arms and legs. ABNormal speech. PSYCHIATRIC: INAppropriate mood and affect; insight and judgment ABnormal. Procedures None Medications and IVs Current Medications Lorazepam (Ativan Inj) 1 mg ONCE ONCE IM Last administered on 03/06/18at 12:41 ; Start 03/06/18 at 12:45; Stop 03/06/18 at 12:46; Status DC Haloperidol Lactate (Haldol Inj) 5 mg ONCE ONCE IM Last administered on at 13:40; Start 03/06/18 at 13:30; Stop 03/06/18 at 13:31; Status DC Lorazepam (Ativan Inj) 2 mg ONCE ONCE IM ; Start 03/06/18 at 13:30; Stop at 13:30; Status DC Acetaminophen (Tylenol) 650 mg Q4H PRN PO Pain 1-5 or Temp >101F Last administered on 03/19/18at 00:08; Start 03/06/18 at 17:15 Magnesium Hydroxide (Milk Of Magnesia Liq) 30 ml DAILY PRN PO CONSTIPATION; Start 03/06/18 at 17:15 Al Hydrox/Mg Hydrox/Simethicone (Mag-Al Plus Susp Liq) 30 ml Q6H PRN PO DYSPEPSIA; Start 03/06/18 at 17:15 Nicotine (Habitrol 21 Mg Patch.24 Hr) 1 patch DAILY PRN T-DERMAL nicotine craving; Start 03/06/18 at 17:15 Aspirin (Ecotrin Ec) 81 mg DAILY PO Last administered on 03/19/18at 10:06; Start 03/07/18 at 09:00 Atorvastatin Calcium (Lipitor) 40 mg DAILY PO Last administered on 03/19/18at 10 :07; Start 03/07/18 at 09:00 Lisinopril (Prinivil) 5 mg DAILY PO Last administered on 03/10/18at 09:00; Start 03/07/18 at 09:00; Stop 03/10/18 at 12:47; Status DC Clonidine (Catapres) 0.1 mg Q8HR PRN PO SBP>180 or DBP>100 Last administered on 03/08/18at 17:18; Start 03/06/18 at 17:15 Clonidine (Catapres) 0.1 mg Q6H PRN PO SBP >160; Start 03/06/18 at 18:15; Stop 03/11/18 at 15:59; Status DC Dextrose (D50w (Vial) Inj) 50 ml UNSCH PRN IV PUSH HYPOGLYCEMIA-SEE COMMENTS; Start 03/07/18 at 09:30 Glucagon (Glucagon Inj) 1 mg UNSCH PRN OTHER HYPOGLYCEMIA-SEE COMMENTS; Start 03/07/18 at 09:30 Insulin Aspart (NovoLOG SUPPLEMENTAL SCALE) 1 ACHS SLIDING SCALE SQ ; Start 08/14 at 12:00; Stop 03/10/18 at 15:01; Status DC Diphenhydramine HCl (Benadryl) 50 mg HS PRN PO INSOMNIA; Start 03/07/18 at 14: 45; Status Future hold Hydroxyzine HCl (Atarax) 50 mg Q6H PRN PO ANXIETY Last administered on at 15:18; Start 03/07/18 at 14:45; Status Future hold Non-Formulary Medication 50 mg DIRECTED PO ; Start 03/07/18 at 14:45; Stop at 20:29; Status DC Quetiapine Fumarate (SEROquel) 400 mg DAILY@0800 PO ; Start 03/08/18 at 08:00; Stop 03/08/18 at 13:38; Status DC Quetiapine Fumarate (SEROquel) 150 mg DAILY@0800 PO ; Start 03/08/18 at 08:00; Stop 03/08/18 at 13:38; Status DC Quetiapine Fumarate (SEROquel) 50 mg BID@1300,1800 PO ; Start 03/08/18 at 13:00 ; Stop 03/08/18 at 13:38; Status DC Quetiapine Fumarate (SEROquel) 100 mg HS PO Last administered on 03/07/18at 21: 10; Start 03/07/18 at 21:00; Stop 03/08/18 at 13:38; Status DC Miscellaneous (Pill Splitter) 1 ea UNSCH PRN OTHER SEE LABEL COMMENTS; Start at 20:30 Haloperidol Lactate (Haldol Inj) 5 mg STK-MED ONCE .ROUTE ; Start 03/07/18 at 22 :43; Stop 03/07/18 at 22:44; Status DC Lorazepam (Ativan Inj) 2 mg STK-MED ONCE .ROUTE ; Start 03/07/18 at 22:43; Stop 03/07/18 at 22:44; Status DC Haloperidol Lactate (Haldol Inj) 2.5 mg NOW IM ; Start 03/07/18 at 22:30; Stop 03/07/18 at 23:56; Status DC Lorazepam (Ativan Inj) 0.5 mg NOW IM ; Start 03/07/18 at 22:30; Stop 03/07/18 at 23:56; Status DC Haloperidol Lactate (Haldol Inj) 5 mg STK-MED ONCE .ROUTE ; Start 03/08/18 at 02 :04; Stop 03/08/18 at 02:05; Status DC Lorazepam (Ativan Inj) 2 mg STK-MED ONCE .ROUTE ; Start 03/08/18 at 02:04; Stop 03/08/18 at 02:05; Status DC Haloperidol Lactate (Haldol Inj) 2.5 mg NOW IM Last administered on 03/08/18at 05:18; Start 03/08/18 at 02:00; Stop 03/08/18 at 03:30; Status DC Lorazepam (Ativan Inj) 0.5 mg NOW IM Last administered on 03/08/18at 02:00; Start 03/08/18 at 02:00; Stop 03/08/18 at 03:30; Status DC Quetiapine Fumarate (SEROquel) 200 mg HS PO ; Start 03/08/18 at 21:00; Stop 09/13 at 21:00; Status DC Quetiapine Fumarate (SEROquel) 100 mg BID@1200,1800 PO ; Start 03/08/18 at 18:00 ; Stop 03/08/18 at 19:24; Status DC Quetiapine Fumarate (SEROquel) 200 mg HS PO Last administered on 03/12/18at 21: 50; Start 03/08/18 at 21:00; Status Future Hold Quetiapine Fumarate (SEROquel) 100 mg BID@1200,1800 PO Last administered on at 11:16; Start 03/09/18 at 12:00; Status Future Hold Diphenhydramine HCl (Benadryl Inj) 25 mg STAT ONCE IM Last administered on at 21:45; Start 03/09/18 at 21:45; Stop 03/09/18 at 21:46; Status DC Haloperidol Lactate (Haldol Inj) 3 mg STAT ONCE IM Last administered on at 22:15; Start 03/09/18 at 22:15; Stop 03/09/18 at 22:16; Status DC Lisinopril (Prinivil) 10 mg DAILY PO Last administered on 03/19/18at 10:07; Start 03/11/18 at 09:00; Status Future hold Insulin Aspart (NovoLOG SUPPLEMENTAL SCALE) 1 BIDAC SQ ; Start 03/10/18 at 16:00 ; Stop 03/17/18 at 09:36; Status DC Clonidine (Catapres-Tts 0.1mg Patch.7d) 1 patch Q7D T-DERMAL Last administered on 03/18/18at 17:00; Start 03/11/18 at 17:00 Miscellaneous Information 1 Q7D T-DERMAL Last administered on 03/18/18at 17:00; Start 03/18/18 at 17:00 Cefuroxime Axetil (Ceftin) 250 mg Q12HR PO ; Start 03/13/18 at 11:30; Stop 03/13 at 12:50; Status DC Ceftriaxone Sodium 1000 mg/ Sodium Chloride 100 ml @ 200 mls/hr Q24H IV Last administered on 03/17/18at 15:08; Start 03/13/18 at 15:00; Stop 03/18/18 at 08:48 ; Status DC Haloperidol Lactate (Haldol Inj) 5 mg STK-MED ONCE .ROUTE Last administered on 03/13/18at 15:46; Start 03/13/18 at 15:46; Stop 03/13/18 at 15:47; Status DC Haloperidol Lactate (Haldol Inj) 5 mg NOW ONCE IM ; Start 03/13/18 at 16:15; Stop 03/13/18 at 16:16; Status DC Olanzapine (ZyPREXA INJ) 10 mg ONCE ONCE IM Last administered on 03/13/18at 17: 30; Start 03/13/18 at 17:30; Stop 03/13/18 at 17:31; Status DC Haloperidol Lactate (Haldol Lactate Liq) 5 mg TID PO ; Start 03/14/18 at 13:00; Stop 03/15/18 at 17:03; Status DC Haloperidol Lactate (Haldol Inj) 5 mg TID PRN IM Give if patient refuses oral Last administered on 03/15/18at 14:28; Start 03/14/18 at 09:15; Stop 03/15/18 at 17:03; Status DC Enalaprilat (Vasotec Inj) 1.25 mg Q6H PRN IV PUSH SBP>180, DBP>95; Start at 13:15; Stop 03/16/18 at 07:17; Status DC Haloperidol Lactate (Haldol Inj) 10 mg BID PRN IM Give if patient refuses oral Last administered on 03/15/18at 22:29; Start 03/15/18 at 17:15; Stop 03/17/18 at 14:15; Status DC Haloperidol Lactate (Haldol Lactate Liq) 10 mg BID PO Last administered on 03/17at 08:05; Start 03/15/18 at 21:00; Stop 03/17/18 at 14:15; Status DC Enalaprilat (Vasotec Inj) 1.25 mg Q8H PRN IV PUSH SBP>180, DBP>95; Start at 07:15 Haloperidol Lactate (Haldol Inj) 15 mg BID PRN IM Give if patient refuses oral ; Start 03/17/18 at 14:15 Haloperidol Lactate (Haldol Lactate Liq) 15 mg BID PO Last administered on 03/19at 10:07; Start 03/17/18 at 21:00 Ceftriaxone Sodium 2000 mg/ Sodium Chloride 100 ml @ 200 mls/hr Q24H IV Last administered on 03/18/18at 15:30; Start 03/18/18 at 12:00 A/P Problem List: (1) DEMENTIA IN OTH DISEASES CLASSD ELSWHR W BEHAVIORAL DISTURB ICD Code: F02.81 - DEMENTIA IN OTH DISEASES CLASSD ELSWHR W BEHAVIORAL DISTURB (2) UTI (urinary tract infection) ICD Code: N39.0 - Urinary tract infection, site not specified (3) Uncontrolled hypertension ICD Code: I10 - Essential (primary) hypertension (4) Fall ICD Code: W19.XXXA - Unspecified fall, initial encounter (5) Hyperlipidemia ICD Code: E78.5 - Hyperlipidemia, unspecified (6) Aortic stenosis ICD Code: I35.0 - Nonrheumatic aortic (valve) stenosis (7) Diabetes ICD Code: E11.9 - Type 2 diabetes mellitus without complications (8) Microcytic anemia ICD Code: D50.9 - Iron deficiency anemia, unspecified Assessment and Plan 72-year-old male with history of dementia, severe aortic stenosis and type 2 diabetes mellitus being admitted to the psych unit for aggression towards family. During his J-pod admission, patient had a fall, imaging was negative. We were consulted for medical comanagement. Dementia, aggressive behavior, acute, improved some Medication noncompliance -management per psychiatry -RPR and TSH WNL Citrobacter Koseri UTI, pansensitive, acute -pansensitive on culture but patient refusing oral medications -continue on IV Ceftriaxone. D/c 03/19. Poor po intake -Clam Sorter consulted, calorie count in progress. Recs expected 03/18. -consider adding Megace, however patient has been refusing oral medications s/p fall in jpod, all imaging negative, acute Sitter at bedside -evaluated by PT, no PT needed at discharge but requires supervision -fall precautions Hypertension, chronic Uncontrolled, secondary to medication noncompliance and agitation -continue on Clonidine patch. Increase if needed. -Vasotec IV prn with parameters -continue to monitor BP and adjust treatment accordingly Dyslipidemia, chronic -continue statin therapy Aortic stenosis, chronic -maintain tight BP control -Check 2 D echocardiogram. Consider Cardiology consultation if severe. DM, chronic -continue on heart healthy diabetic diet -Blood sugar stable. Microcytic, hypochromic anemia, appears chronic, stable -TSH, B12 and folate levels WNL -Upon review of records it is noted that the patient had iron studies with low iron, low TIBC and low percent saturation of iron. Ferritin is within normal range. Finding seems to correlate with anemia of chronic disease. Check stool guaiac. Continue to monitor hemoglobin. DVT prophylaxis -patient is ambulatory Robert Bishop DO Mar 19, 2018 10:24
[2018-03-19] MEDS: cefTRIAXone INJ 2,000 MG in SODIUM CHLORIDE 0.9% INJ 100 ML IV SCH (12:00)
[2018-03-19 18:11] VITALS: BP 157/70; PULSE 60; RESP 16; TEMP 97.7; O2SAT 98
[2018-03-20 06:09] VITALS: BP 187/79; PULSE 54; RESP 17; TEMP 97.7; O2SAT 98
[2018-03-20] MEDS: HALOPERIDOL LACTATE ORAL CONC 10 MG/5 ML CUP PO SCH ×2 (08:49→21:26)
[2018-03-20] MEDS: ATORVASTATIN 40 MG TAB PO SCH (08:50)
[2018-03-20] MEDS: ASPIRIN EC 81 MG TABEC PO SCH (08:50)
[2018-03-20] MEDS ORDERED: cloNIDine HCL 0.2 MG/24 HR PATCH T-DERMAL SCH (09:00)
[2018-03-20] MEDS: LISINOPRIL 10 MG TAB PO SCH (09:00)
[2018-03-20 09:20] VITALS: BP 161/69; O2SAT 54
--- NOTE | 2018-03-20 11:19 | HHI.PR ---
Subjective Remarks Follow-up visit Dementia, hypertension, diabetes, UTI, frequency, urinary retention. Patient seen and examined today. As per aide, patient has been trying to get in and out of the bathroom possibly about 18 times since this morning and last night but has not voided or urinated well. As per nurse, bladder scan was not done yet with patient. Appears to have urinary retention. Patient is nonverbal, appears comfortable. Objective Vitals Vital Signs Date Time Temp Pulse Resp B/P (MAP) Pulse Ox O2 Delivery O2 Flow Rate FiO2 03/20/18 09:20 161/69 (99) 54 03/20/18 06:09 97.7 54 17 187/79 (115) 98 03/19/18 18:11 97.7 60 16 157/70 (99) 98 I/O 03/19/18 03/19/18 03/19/18 03/20/18 03/20/18 03/20/18 07:00 15:00 23:00 07:00 15:00 23:00 Intake Total 0 ml 360 ml 2040 ml Balance 0 ml 360 ml 2040 ml Intake Oral 0 ml 360 ml 2040 ml # Voids 2 2 3 # Bowel Movements 1 Imaging Last Impressions Thoracic Spine CT 03/06/181526 Signed Impressions: CONCLUSION: 1. No acute findings. Pelvis X-Ray 03/06/181526 Signed Impressions: CONCLUSION: No acute findings. Lumbar Spine CT 03/06/181526 Signed Impressions: CONCLUSION: 1. No acute fracture. At L4-5 there is a large broad-based disc protrusion wit h at least moderate canal stenosis. 2. Broad-based disc bulges at L3-4 and L5-S1 with bilateral foraminal stenosis at L5-S1. Head CT 03/06/181526 Signed Impressions: CONCLUSION: 1. 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 No acute intracranial hemorrhage, mass effect or shift. No acute bony abnormality. Chest X-Ray 03/06/181526 Signed Impressions: CONCLUSION: No acute findings. Cervical Spine CT 03/06/181526 Signed Impressions: CONCLUSION: 1. No acute fracture. Broad-based disc protrusions at C4-5-6 and to a lesser e xtent at C3-4. 2. Hypertrophic changes around the atlantoaxial articulation Objective Remarks GENERAL: This is a well-nourished, well-developed patient, in no apparent distress. SKIN: Warm and dry. HEENT: Normocephalic. Pupils equal round and reactive. Nose without bleeding. Airway patent. NECK: Trachea midline. CARDIOVASCULAR: Regular rate and rhythm without murmurs, gallops, or rubs. RESPIRATORY: Clear to auscultation. Breath sounds equal bilaterally. No wheezes , rales, or rhonchi. GASTROINTESTINAL: Abdomen soft, non-tender, nondistended. Bowel Sounds normoactive x4. Suprapubic area nontender, nondistended. MUSCULOSKELETAL: Extremities without clubbing, cyanosis, or edema. NEUROLOGICAL: Awake and alert. Moves all extremities. Nonverbal Procedures None A/P Problem List: (1) DEMENTIA IN OTH DISEASES CLASSD ELSWHR W BEHAVIORAL DISTURB ICD Code: F02.81 - DEMENTIA IN OTH DISEASES CLASSD ELSWHR W BEHAVIORAL DISTURB (2) UTI (urinary tract infection) ICD Code: N39.0 - Urinary tract infection, site not specified (3) Uncontrolled hypertension ICD Code: I10 - Essential (primary) hypertension (4) Fall ICD Code: W19.XXXA - Unspecified fall, initial encounter (5) Hyperlipidemia ICD Code: E78.5 - Hyperlipidemia, unspecified (6) Aortic stenosis ICD Code: I35.0 - Nonrheumatic aortic (valve) stenosis (7) Diabetes ICD Code: E11.9 - Type 2 diabetes mellitus without complications (8) Microcytic anemia ICD Code: D50.9 - Iron deficiency anemia, unspecified Assessment and Plan 72-year-old male with history of dementia, severe aortic stenosis and type 2 diabetes mellitus being admitted to the psych unit for aggression towards family. During his J-pod admission, patient had a fall, imaging was negative. We were consulted for medical comanagement. Dementia, aggressive behavior, acute, improved some Medication noncompliance -management per psychiatry -RPR and TSH WNL Citrobacter Koseri UTI, pansensitive, acute -pansensitive on culture but patient refusing oral medications -on IV Ceftriaxone Poor po intake -consider adding Megace, however patient has been refusing oral medications -Aide to assist with feeding s/p fall in jpod, all imaging negative, acute Sitter at bedside -Evaluated by PT, no PT needed at discharge but requires supervision -Fall precautions Hypertension, chronic Uncontrolled, secondary to medication noncompliance and agitation Aortic stenosis, chronic Dyslipidemia, chronic -continue statin therapy -continue on Clonidine patch increased to 0.2 mg, lisinopril 10 mg daily -Vasotec IV prn with parameters -continue to monitor BP and adjust treatment accordingly DM, history -Continue on heart healthy diabetic diet -Not on any medications. Hemoglobin A1c 5.0 Microcytic, hypochromic anemia, appears chronic, stable -TSH, B12 and folate levels WNL -Iron studies with low iron, low TIBC and low percent saturation of iron. Ferritin is within normal range. Finding seems to correlate with anemia of chronic disease. Urinary retention, frequency -This can be related to urinary tract infection but will do bladder scan -Flomax daily -If bladder scan is greater than 200-300 cc, will straight cath. If straight cath has been done 3 times consider Stewart catheterization DVT prophylaxis -patient is ambulatory Homar Riggs Mar 20, 2018 11:19
[2018-03-20] MEDS: cefTRIAXone INJ 2,000 MG in SODIUM CHLORIDE 0.9% INJ 100 ML IV SCH (12:00)
--- NOTE | 2018-03-20 16:48 | HHI.PYPN ---
Subjective Chief Complaint: Patient with dementia aggressive and assaultive at home Remarks Patient seen for follow, chart reviewed. Discussion nursing staff reported the patient noted to be getting out of bed more, continues to have some difficulty with medications and needing encouragement to take. Patient was found sitting hospital chair noted earlier to be ambulating with assistance with sitter. Patient continues with one-to-one observation for safety. Patient will limited cooperation with interview only nodding at times and limited verbal communication only stating that he is feeling "okay". Patient was able to nod that he is eating adequately with good appetite and able to ambulate with assistance. Patient was unable to express whether he was having any perceptional services but is not noted to be internally preoccupied or responding to internal stimuli. Review of Systems Except as stated in HPI: all other systems reviewed are Neg Mental Status Examination Appearance: Appropriate Consciousness: Other (Drowsy to arousable secondary to ETO) Orientation: Person Motor Activity: Other (Patient Eufemia chair) Speech: Incoherent Language: Other (Poor) Fund of Knowledge: Poor Attention and Concentration: Easily Distracted Memory: Impaired Mood: Other ("Okay") Affect: Other (Decreased range and intensity) Thought Process & Associations: Disorganized Hallucination Type: None Delusion Type: None Suicidal Ideation: No Suicidal Plan: No Suicidal Intention: No Homicidal Ideation: No Homicidal Plan: No Homicidal Intention: No Insight: Poor Judgment: Poor Results Labs Date/Time Source Procedure Growth Status 03/12/18 20:30 Urine Clean Catch Urine Culture - Final Citrobacter Koseri Complete Vitals/IOs Vital Signs Date Time Temp Pulse Resp B/P (MAP) Pulse Ox O2 Delivery O2 Flow Rate FiO2 03/20/18 09:20 161/69 (99) 54 03/20/18 06:09 97.7 54 17 Assessment & Plan Problem List: (1) ALZHEIMER'S DISEASE WITH LATE ONSET ICD Codes: G30.1 - ALZHEIMER'S DISEASE WITH LATE ONSET (2) DEMENTIA IN OTH DISEASES CLASSD ELSWHR W BEHAVIORAL DISTURB ICD Codes: F02.81 - DEMENTIA IN OTH DISEASES CLASSD ELSWHR W BEHAVIORAL DISTURB Assessment & Plan Patient with no behavioral disturbances, headache, cooperative with staff, requiring encouragement to take medications. Patient continues with confusion secondary to neurocognitive deficits. Continue current treatment. Continue monitor mood and behavior. Discharge planning in progress. Justification for Cont. Inpt. At risk for further decompensation if at lower level of care Leandro Fisher MD Mar 20, 2018 16:48
[2018-03-20 18:04] VITALS: BP 186/77; PULSE 54; RESP 16; TEMP 98; O2SAT 98
[2018-03-20] MEDS: TAMSULOSIN HCL 0.4 MG CAP PO SCH ×2 (21:00→21:25)
[2018-03-21 04:58] VITALS: BP 116/75; PULSE 66; RESP 17; O2SAT 96
[2018-03-21] MEDS: ASPIRIN EC 81 MG TABEC PO SCH (08:40)
[2018-03-21] MEDS: HALOPERIDOL LACTATE ORAL CONC 10 MG/5 ML CUP PO SCH ×2 (08:40→21:22)
[2018-03-21] MEDS: LISINOPRIL 10 MG TAB PO SCH ×2 (08:40→09:00)
[2018-03-21] MEDS: ATORVASTATIN 40 MG TAB PO SCH ×2 (08:40→09:00)
--- NOTE | 2018-03-21 10:29 | HHI.PR ---
Subjective Remarks Follow-up visit Dementia, hypertension, diabetes, UTI, frequency, urinary retention. Patient seen and examined today. Aide at the bedside who states that he is weaker today. States patient is very active at night but usually sleeping during the day. Patient was waking up by tactile stimulus and get very very agitated and starts screaming and yelling, incomprehensible words. Objective Vitals Vital Signs Date Time Temp Pulse Resp B/P (MAP) Pulse Ox O2 Delivery O2 Flow Rate FiO2 03/21/18 04:58 66 17 116/75 (89) 96 03/20/18 18:04 98.0 54 16 186/77 (113) 98 I/O 03/20/18 03/20/18 03/20/18 03/21/18 03/21/18 03/21/18 07:00 15:00 23:00 07:00 15:00 23:00 Intake Total 1320 ml 240 ml Balance 1320 ml 240 ml Intake Oral 1320 ml 240 ml Bladder Scan Volume Amount 112 ml # Voids 3 7 3 # Bowel Movements 2 Imaging Last Impressions Thoracic Spine CT 03/06/181526 Signed Impressions: CONCLUSION: 1. No acute findings. Pelvis X-Ray 03/06/181526 Signed Impressions: CONCLUSION: No acute findings. Lumbar Spine CT 03/06/181526 Signed Impressions: CONCLUSION: 1. No acute fracture. At L4-5 there is a large broad-based disc protrusion wit h at least moderate canal stenosis. 2. Broad-based disc bulges at L3-4 and L5-S1 with bilateral foraminal stenosis at L5-S1. Head CT 03/06/181526 Signed Impressions: CONCLUSION: 1. 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 No acute intracranial hemorrhage, mass effect or shift. No acute bony abnormality. Chest X-Ray 03/06/181526 Signed Impressions: CONCLUSION: No acute findings. Cervical Spine CT 03/06/181526 Signed Impressions: CONCLUSION: 1. No acute fracture. Broad-based disc protrusions at C4-5-6 and to a lesser e xtent at C3-4. 2. Hypertrophic changes around the atlantoaxial articulation Objective Remarks GENERAL: This is a well-nourished, well-developed patient, in no apparent distress. SKIN: Warm and dry. HEENT: Normocephalic. Pupils equal round and reactive. Nose without bleeding. Airway patent. NECK: Trachea midline. CARDIOVASCULAR: Regular rate and rhythm without murmurs, gallops, or rubs. RESPIRATORY: Clear to auscultation. Breath sounds equal bilaterally. No wheezes , rales, or rhonchi. GASTROINTESTINAL: Abdomen soft, non-tender, nondistended. Bowel Sounds normoactive x4. Suprapubic area nontender, nondistended. MUSCULOSKELETAL: Extremities without clubbing, cyanosis, or edema. NEUROLOGICAL: Awake and alert. Moves all extremities. Nonverbal Procedures None A/P Problem List: (1) DEMENTIA IN OTH DISEASES CLASSD ELSWHR W BEHAVIORAL DISTURB ICD Code: F02.81 - DEMENTIA IN OTH DISEASES CLASSD ELSWHR W BEHAVIORAL DISTURB (2) UTI (urinary tract infection) ICD Code: N39.0 - Urinary tract infection, site not specified (3) Uncontrolled hypertension ICD Code: I10 - Essential (primary) hypertension (4) Fall ICD Code: W19.XXXA - Unspecified fall, initial encounter (5) Hyperlipidemia ICD Code: E78.5 - Hyperlipidemia, unspecified (6) Aortic stenosis ICD Code: I35.0 - Nonrheumatic aortic (valve) stenosis (7) Diabetes ICD Code: E11.9 - Type 2 diabetes mellitus without complications (8) Microcytic anemia ICD Code: D50.9 - Iron deficiency anemia, unspecified Assessment and Plan 72-year-old male with history of dementia, severe aortic stenosis and type 2 diabetes mellitus being admitted to the psych unit for aggression towards family. During his J-pod admission, patient had a fall, imaging was negative. We were consulted for medical comanagement. Dementia, aggressive behavior, acute, improved some Medication noncompliance -management per psychiatry -RPR and TSH WNL Citrobacter Koseri UTI, pansensitive, acute -pansensitive on culture but patient refusing oral medications -on IV Ceftriaxone x 5 days Poor po intake -consider adding Megace, however patient has been refusing oral medications -Aide to assist with feeding s/p fall in jpod, all imaging negative, acute Sitter at bedside -Evaluated by PT, no PT needed at discharge but requires supervision -Fall precautions Hypertension, chronic Uncontrolled, secondary to medication noncompliance and agitation Aortic stenosis, chronic Dyslipidemia, chronic -continue statin therapy -continue on Clonidine patch increased to 0.2 mg, lisinopril 10 mg daily -Vasotec IV prn with parameters -continue to monitor BP and adjust treatment accordingly -Improved DM, history -Continue on heart healthy diabetic diet -Not on any medications. Hemoglobin A1c 5.0 Microcytic, hypochromic anemia, appears chronic, stable -TSH, B12 and folate levels WNL -Iron studies with low iron, low TIBC and low percent saturation of iron. Ferritin is within normal range. Finding seems to correlate with anemia of chronic disease. Urinary retention, frequency -Flomax daily -If bladder scan is greater than 200-300 cc, will straight cath. If straight cath has been done 3 times consider Stewart catheterization DVT prophylaxis lovesantiagox Homar Riggs Mar 21, 2018 10:29
[2018-03-21] MEDS ORDERED: HALOPERIDOL LACTATE 5 MG/ML AMP IM PRN (11:00)
--- NOTE | 2018-03-21 11:01 | HHI.PYPN ---
Subjective Chief Complaint: Patient with dementia aggressive and assaultive at home Remarks Patient seen in his room with sitter and nurse Tyra, chart reviewed, patient compliant medication. Patient more alert and did not initially respond to my questions somewhat confused with labile understandable. He became more selectively mute. Sitting quite still. But redirectable is able to stand with minimal assistance and balance. Walking with a shuffling walk to sit down in a chair. At this time I feel patient is a significant fall risk is quite unstable on his feet this was would demand a one-to-one. We will continue that one-to-one. We will also decreases oral Haldol to 10 mg a.m. and 15 mg at bedtime Review of Systems Except as stated in HPI: all other systems reviewed are Neg Mental Status Examination Appearance: Appropriate Consciousness: Other (Drowsy to arousable secondary to ETO) Orientation: Person Motor Activity: Other (Patient Eufemia chair) Speech: Incoherent Language: Other (Poor) Fund of Knowledge: Poor Attention and Concentration: Easily Distracted Memory: Impaired Mood: Other ("Okay") Affect: Other (Decreased range and intensity) Thought Process & Associations: Disorganized Hallucination Type: None Delusion Type: None Suicidal Ideation: No Suicidal Plan: No Suicidal Intention: No Homicidal Ideation: No Homicidal Plan: No Homicidal Intention: No Insight: Poor Judgment: Poor Results Labs Date/Time Source Procedure Growth Status 03/12/18 20:30 Urine Clean Catch Urine Culture - Final Citrobacter Koseri Complete Vitals/IOs Vital Signs Date Time Temp Pulse Resp B/P (MAP) Pulse Ox O2 Delivery O2 Flow Rate FiO2 03/21/18 04:58 66 17 116/75 (89) 96 03/20/18 18:04 98.0 Intake and Output 03/21/18 03/21/18 03/22/18 08:00 16:00 00:00 Intake Total 240 ml Balance 240 ml Assessment & Plan Problem List: (1) ALZHEIMER'S DISEASE WITH LATE ONSET ICD Codes: G30.1 - ALZHEIMER'S DISEASE WITH LATE ONSET (2) DEMENTIA IN OTH DISEASES CLASSD ELSWHR W BEHAVIORAL DISTURB ICD Codes: F02.81 - DEMENTIA IN OTH DISEASES CLASSD ELSWHR W BEHAVIORAL DISTURB Assessment & Plan Estimated LOS: days. Continues demented and confused somewhat more alert than prior Justification for Cont. Inpt. At this time patient would decompensate a place to the lower level of care Discharge Planning Possible return home with some Tejas Bee MD Mar 21, 2018 11:01
[2018-03-21] MEDS: cefTRIAXone INJ 2,000 MG in SODIUM CHLORIDE 0.9% INJ 100 ML IV SCH (12:00)
--- NOTE | 2018-03-21 12:57 | PD.TTN ---
Patient Problems 1. Discharge planning 2. Medication compliance 3. Knowledge deficit 4. Lack of coping skills Progress Toward Goals Provider Present: Dr. Ameya Bee Provider Input: 03/21/2018; Patient continues to require 1:1, and redirection medication is being adjusted to address behavior/mood 03/07/18 he has been here treated before Nurse(s) Present: RNSULEIMAN Nurse(s) Input: 03/21/2018; patient is easily agitated, he is eating and taking his medication; however his behavior is unpredictable Psychiatric Counselors Present: Amena Medina LCSW, Sarah Nicole [facility] Psych Therapist Input: 03/21/2018; Counselor will contact patient's son to have him come to a family meeting and give an update on his impression with patient's current status. 03/07/18 son called, he does not want to take medications at home but he can return home if stable [phone] Group Spec/RT/OT/HINKLE Present: David Pritchett OT Group Spec/RT/OT/HINKLE Input: 03/21/2018; patient lacks ability or insight to participate with groups or activities Documentation Scribe: Sarah Doe [facility] Mar 21, 2018 12:57
[2018-03-21] MEDS: ENOXAPARIN SODIUM 40 MG/0.4 ML SYRINGE SQ SCH (14:00)
[2018-03-21] MEDS: SODIUM CHLOR 0.9% 1000 ML INJ 1,000 ML IV SCH (16:00)
[2018-03-21 18:00] VITALS: BP 106/53; PULSE 46; RESP 17; TEMP 97.4; O2SAT 98
[2018-03-21] MEDS: TAMSULOSIN HCL 0.4 MG CAP PO SCH (21:22)
[2018-03-21] MEDS: diphenhydrAMINE HCL 50 MG CAP PO PRN (21:22)
[2018-03-21] MEDS: hydrOXYzine HCL 50 MG TAB PO PRN (21:23)
[2018-03-22 05:30] VITALS: BP 155/67; PULSE 54; RESP 16; TEMP 97.2; O2SAT 97
[2018-03-22] MEDS: ASPIRIN EC 81 MG TABEC PO SCH (08:33)
[2018-03-22] MEDS: LISINOPRIL 10 MG TAB PO SCH (08:34)
[2018-03-22] MEDS: ATORVASTATIN 40 MG TAB PO SCH (08:34)
[2018-03-22] MEDS: HALOPERIDOL LACTATE ORAL CONC 10 MG/5 ML CUP PO SCH ×2 (09:00→21:00)
[2018-03-22 09:46] LABS: BASOPHIL # 0.1 TH/MM3 (0-0.2); BASOPHIL % 0.8 % (0.0-2.0); EOSINOPHIL % 0.5 % (0.0-4.0); HEMATOCRIT 36.1 % (39.0-51.0); HEMOGLOBIN 11.5 GM/DL (13.0-17.0); LYMPH % 23.2 % (9.0-44.0); LYMPHOCYTE # 1.6 TH/MM3 (1.0-4.8); MEAN CELL VOLUME 75.7 FL (80.0-100.0); MEAN CORPUSCULAR HGB CONC 31.7 % (32.0-36.0); MEAN PLATELET VOLUME 10.2 FL (7.0-11.0); MONO % 4.4 % (0.0-8.0); MONOCYTE # 0.3 TH/MM3 (0-0.9); NEUT % 71.1 % (16.0-70.0); PLATELET COUNT 196 TH/MM3 (150-450); RED BLOOD COUNT 4.77 MIL/MM3 (4.50-5.90); RED CELL DISTRIBUTION WIDTH 17.3 % (11.6-17.2); WHITE BLOOD COUNT 7.1 TH/MM3 (4.0-11.0)
--- NOTE | 2018-03-22 10:07 | HHI.PYPN ---
Subjective Chief Complaint: Patient with dementia aggressive and assaultive at home Remarks Patient seen in the TV room sitting in Eufemia chair with a sitter and with nurse Andreea, patient alert did respond to his name speaking in broken Liberian with somewhat gibberish. He has been no behavior problem recently, except mixed compliance with medication. Counselor will continue to work with patient's son to determine if placed in the home is feasible with his son Review of Systems Except as stated in HPI: all other systems reviewed are Neg Mental Status Examination Appearance: Appropriate Consciousness: Other (Drowsy to arousable secondary to ETO) Orientation: Person Motor Activity: Other (Patient Eufemia chair) Speech: Incoherent Language: Other (Poor) Fund of Knowledge: Poor Attention and Concentration: Easily Distracted Memory: Impaired Mood: Other ("Okay") Affect: Other (Decreased range and intensity) Thought Process & Associations: Disorganized Hallucination Type: None Delusion Type: None Suicidal Ideation: No Suicidal Plan: No Suicidal Intention: No Homicidal Ideation: No Homicidal Plan: No Homicidal Intention: No Insight: Poor Judgment: Poor Results Labs Test 03/22/18 09:05 White Blood Count 7.1 TH/MM3 Red Blood Count 4.77 MIL/MM3 Hemoglobin 11.5 GM/DL Hematocrit 36.1 % Mean Corpuscular Volume 75.7 FL Mean Corpuscular Hemoglobin 24.0 PG Mean Corpuscular Hemoglobin Concent 31.7 % Red Cell Distribution Width 17.3 % Platelet Count 196 TH/MM3 Mean Platelet Volume 10.2 FL Neutrophils (%) (Auto) 71.1 % Lymphocytes (%) (Auto) 23.2 % Monocytes (%) (Auto) 4.4 % Eosinophils (%) (Auto) 0.5 % Basophils (%) (Auto) 0.8 % Neutrophils # (Auto) 5.0 TH/MM3 Lymphocytes # (Auto) 1.6 TH/MM3 Monocytes # (Auto) 0.3 TH/MM3 Eosinophils # (Auto) 0.0 TH/MM3 Basophils # (Auto) 0.1 TH/MM3 CBC Comment DIFF FINAL Differential Comment Date/Time Source Procedure Growth Status 03/12/18 20:30 Urine Clean Catch Urine Culture - Final Citrobacter Koseri Complete Vitals/IOs Vital Signs Date Time Temp Pulse Resp B/P (MAP) Pulse Ox O2 Delivery O2 Flow Rate FiO2 03/22/18 05:30 97.2 54 16 155/67 (96) 97 Intake and Output 03/22/18 03/22/18 03/23/18 08:00 16:00 00:00 Intake Total 240 ml Balance 240 ml Assessment & Plan Problem List: (1) ALZHEIMER'S DISEASE WITH LATE ONSET ICD Codes: G30.1 - ALZHEIMER'S DISEASE WITH LATE ONSET (2) DEMENTIA IN OTH DISEASES CLASSD ELSWHR W BEHAVIORAL DISTURB ICD Codes: F02.81 - DEMENTIA IN OTH DISEASES CLASSD ELSWHR W BEHAVIORAL DISTURB Assessment & Plan Estimated LOS: days patient continues diffusely confused disoriented and demented, somewhat calmer today. For now continue treatment Justification for Cont. Inpt. At this time patient would decompensate a place to a lower level of care Discharge Planning To be determined perhaps along with some Tejas Bee MD Mar 22, 2018 10:07
--- NOTE | 2018-03-22 11:07 | HHI.PR ---
Subjective Remarks Follow-up visit Dementia, hypertension, diabetes, UTI, frequency, urinary retention. Spoke with nurse reports patient continues to refuse medications, eating and drinking on and off, with wet briefs. Patient seen and examined sitting in geriatric chair with sitter present Patient is awake and alert, but with confusion does not answers questions appropriately. Shakes his head "no" to pain, but then states "far far away". Objective Vitals Vital Signs Date Time Temp Pulse Resp B/P (MAP) Pulse Ox O2 Delivery O2 Flow Rate FiO2 03/22/18 05:30 97.2 54 16 155/67 (96) 97 03/21/18 18:00 97.4 46 17 106/53 (70) 98 I/O 03/21/18 03/21/18 03/21/18 03/22/18 03/22/18 03/22/18 07:00 15:00 23:00 07:00 15:00 23:00 Intake Total 960 ml 480 ml 240 ml Balance 960 ml 480 ml 240 ml Intake Oral 960 ml 480 ml 240 ml # Voids 3 3 Result Diagram: 03/22/18904 Imaging Last Impressions Thoracic Spine CT 03/06/181526 Signed Impressions: CONCLUSION: 1. No acute findings. Pelvis X-Ray 03/06/181526 Signed Impressions: CONCLUSION: No acute findings. Lumbar Spine CT 03/06/181526 Signed Impressions: CONCLUSION: 1. No acute fracture. At L4-5 there is a large broad-based disc protrusion wit h at least moderate canal stenosis. 2. Broad-based disc bulges at L3-4 and L5-S1 with bilateral foraminal stenosis at L5-S1. Head CT 03/06/181526 Signed Impressions: CONCLUSION: 1. 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 No acute intracranial hemorrhage, mass effect or shift. No acute bony abnormality. Chest X-Ray 03/06/181526 Signed Impressions: CONCLUSION: No acute findings. Cervical Spine CT 03/06/181526 Signed Impressions: CONCLUSION: 1. No acute fracture. Broad-based disc protrusions at C4-5-6 and to a lesser e xtent at C3-4. 2. Hypertrophic changes around the atlantoaxial articulation Objective Remarks GENERAL: Thin elderly male patient, in NAD. SKIN: Warm and dry. HEENT: Normocephalic. No nasal drainage. Mucous membranes moist. NECK: Supple, trachea midline. CARDIOVASCULAR: Regular rate and rhythm. 5/6 systolic murmur. RESPIRATORY: Nonlabored. Good air entry. Breath sounds equal bilaterally. No wheezing or rhonchi. GASTROINTESTINAL: Abdomen soft, non-tender, nondistended. MUSCULOSKELETAL: No obvious deformities. No edema noted. NEUROLOGIC: Awake severe dementia, confused. Able to move all extremities spontaneously. Does not participate in strength testing. Procedures None A/P Problem List: (1) DEMENTIA IN OTH DISEASES CLASSD ELSWHR W BEHAVIORAL DISTURB ICD Code: F02.81 - DEMENTIA IN OTH DISEASES CLASSD ELSWHR W BEHAVIORAL DISTURB (2) UTI (urinary tract infection) ICD Code: N39.0 - Urinary tract infection, site not specified (3) Uncontrolled hypertension ICD Code: I10 - Essential (primary) hypertension (4) Fall ICD Code: W19.XXXA - Unspecified fall, initial encounter (5) Hyperlipidemia ICD Code: E78.5 - Hyperlipidemia, unspecified (6) Aortic stenosis ICD Code: I35.0 - Nonrheumatic aortic (valve) stenosis (7) Diabetes ICD Code: E11.9 - Type 2 diabetes mellitus without complications (8) Microcytic anemia ICD Code: D50.9 - Iron deficiency anemia, unspecified Assessment and Plan 72-year-old male with history of dementia, severe aortic stenosis and type 2 diabetes mellitus being admitted at the psych unit for aggression towards family. During his J-pod admission, patient had a fall, imaging was negative. We were consulted for medical comanagement. Dementia, aggressive behavior -management per psychiatry -RPR negative, TSH WNL Citrobacter Koseri UTI, pansensitive, acute -pansensitive on culture but patient refusing oral medications -on IV Ceftriaxone x 5 days Poor po intake DEON-secondary to poor p.o intake - start p.o. Megace, assist with feedings. - BMP with increase in BUN and creatinine consistent with mild dehydration - Increase IVF to NS @84ml/hr and check labs on 03/24 - Avoid nephrotoxins Fall CT scan of the spine including cervical, lumbar and thoracic were unremarkable. Head CT scan unremarkable. Chest x-ray and pelvis x-ray negative. Sitter at bedside -PT eval/tx -fall precautions Hypertension, chronic Uncontrolled, secondary to medication noncompliance and agitation Aortic stenosis, chronic Dyslipidemia, chronic -continue statin therapy -continue on Clonidine patch increased to 0.2 mg, lisinopril 10 mg daily -Vasotec IV prn with parameters -BP improved, continue monitoring and adjusting meds accordingly DM, history -Continue on heart healthy diabetic diet -Not on any medications. Hemoglobin A1c 5.0 Microcytic, hypochromic anemia, appears chronic, stable -TSH, B12 and folate levels WNL -Iron studies with low iron, low TIBC and low percent saturation of iron. Ferritin is within normal range. Finding seems to correlate with anemia of chronic disease. Urinary retention - Patient with wet briefs, continue UTI treatment, Flomax and toileting. - PRN bladder scanning with straight cath as needed for >200ml. Consider Stewart catheterization if still ongoing issue. DVT prophylaxis lovenox Discussed with nurse. Dilan Falcon Mar 22, 2018 11:07
[2018-03-22] MEDS: cefTRIAXone INJ 2,000 MG in SODIUM CHLORIDE 0.9% INJ 100 ML IV SCH (13:27)
[2018-03-22] MEDS: SODIUM CHLOR 0.9% 1000 ML INJ 1,000 ML IV SCH ×2 (13:31→21:00)
[2018-03-22] MEDS: ENOXAPARIN SODIUM 40 MG/0.4 ML SYRINGE SQ SCH (13:35)
[2018-03-22 14:03] LABS: BICARBONATE 22.7 MEQ/L (21.0-32.0); CALCIUM 8.8 MG/DL (8.5-10.1); CREATININE 1.3 MG/DL (0.60-1.30)
[2018-03-22 18:27] VITALS: BP 177/77; PULSE 79; RESP 17; TEMP 97.9; O2SAT 96
[2018-03-22] MEDS: TAMSULOSIN HCL 0.4 MG CAP PO SCH (21:00)
[2018-03-23] MEDS: SODIUM CHLOR 0.9% 1000 ML INJ 1,000 ML IV SCH ×2 (04:25→16:20)
[2018-03-23 04:47] VITALS: BP 187/77; PULSE 59; RESP 15; TEMP 97.5; O2SAT 95
[2018-03-23] MEDS: ASPIRIN EC 81 MG TABEC PO SCH (09:00)
[2018-03-23] MEDS: HALOPERIDOL LACTATE ORAL CONC 10 MG/5 ML CUP PO SCH ×2 (09:00→20:52)
[2018-03-23] MEDS: ATORVASTATIN 40 MG TAB PO SCH (09:00)
[2018-03-23] MEDS: LISINOPRIL 10 MG TAB PO SCH (09:00)
[2018-03-23] MEDS: MEGESTROL ACETATE SUSP 400 MG/10 ML CUP PO SCH (09:00)
--- NOTE | 2018-03-23 10:47 | HHI.PYPN ---
Subjective Chief Complaint: Patient with dementia aggressive and assaultive at home Remarks Patient seen today in his room with nurse Gerardo, chart reviewed, patient mixed compliance medication. Patient laying in bed quite not responding to me staff states though that he does make his needs known going beats much assistance to get out of bed while he does walk to the compartment he still has episodes of urinary incontinence and bowel incontinence. He continues to babbling in broken Italian/Wolof make him. With the contact with patient's son today. I feel we have reached maximum benefit of this hospitalization. Son continues to be adamant about wanting his father home. He states his can take care of him with some home health assistance. Thus we will discharge patient tomorrow to his home with home health care referral follow-up with a PCP Review of Systems Except as stated in HPI: all other systems reviewed are Neg Mental Status Examination Appearance: Appropriate Consciousness: Other (Drowsy to arousable secondary to ETO) Orientation: Person Motor Activity: Other (Patient Eufemia chair) Speech: Incoherent Language: Other (Poor) Fund of Knowledge: Poor Attention and Concentration: Easily Distracted Memory: Impaired Mood: Other ("Okay") Affect: Other (Decreased range and intensity) Thought Process & Associations: Disorganized Hallucination Type: None Delusion Type: None Suicidal Ideation: No Suicidal Plan: No Suicidal Intention: No Homicidal Ideation: No Homicidal Plan: No Homicidal Intention: No Insight: Poor Judgment: Poor Results Labs Test 03/22/18 13:17 Blood Urea Nitrogen 28 MG/DL Creatinine 1.30 MG/DL Random Glucose 166 MG/DL Calcium Level 8.8 MG/DL Sodium Level 138 MEQ/L Potassium Level 4.3 MEQ/L Chloride Level 107 MEQ/L Carbon Dioxide Level 22.7 MEQ/L Anion Gap 8 MEQ/L Estimat Glomerular Filtration Rate 65 ML/MIN Date/Time Source Procedure Growth Status 03/12/18 20:30 Urine Clean Catch Urine Culture - Final Citrobacter Koseri Complete Vitals/IOs Vital Signs Date Time Temp Pulse Resp B/P (MAP) Pulse Ox O2 Delivery O2 Flow Rate FiO2 03/23/18 04:47 97.5 59 15 187/77 (113) 95 Intake and Output 03/23/18 03/23/18 03/24/18 08:00 16:00 00:00 Intake Total 240 ml Balance 240 ml Assessment & Plan Problem List: (1) ALZHEIMER'S DISEASE WITH LATE ONSET ICD Codes: G30.1 - ALZHEIMER'S DISEASE WITH LATE ONSET (2) DEMENTIA IN OTH DISEASES CLASSD ELSWHR W BEHAVIORAL DISTURB ICD Codes: F02.81 - DEMENTIA IN OTH DISEASES CLASSD ELSWHR W BEHAVIORAL DISTURB Assessment & Plan Estimated LOS: days patient continues demented and confused the low significant behavioral problems, still needs significant assistance with all ADLs continues with urinary and stool incontinence. Consider discharge tomorrow to family patient's son continues to request a trial with him at home with his caring for him along with home health care Justification for Cont. Inpt. At this time patient would decompensate a place to a lower level of care Discharge Planning Return home tomorrow Tejas Bee MD Mar 23, 2018 10:47
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
[2018-03-23] MEDS: ENOXAPARIN SODIUM 40 MG/0.4 ML SYRINGE SQ SCH (15:08)
[2018-03-23] MEDS: TAMSULOSIN HCL 0.4 MG CAP PO SCH (18:17)
[2018-03-23 18:45] VITALS: PULSE 86; RESP 15; TEMP 97.4; O2SAT 95
[2018-03-23] MEDS: hydrOXYzine HCL 50 MG TAB PO PRN (20:50)
[2018-03-23] MEDS: diphenhydrAMINE HCL 50 MG CAP PO PRN (20:50)
[2018-03-23] MEDS: cloNIDine HCL 0.1 MG TAB PO PRN (20:50)
[2018-03-24] MEDS: SODIUM CHLOR 0.9% 1000 ML INJ 1,000 ML IV SCH (04:15)
[2018-03-24 06:00] VITALS: BP 161/68; PULSE 55; RESP 18; TEMP 97.4; O2SAT 98
[2018-03-24] MEDS ORDERED: TAMS5CAP PO (08:19)
[2018-03-24] MEDS ORDERED: LISI10TA3 PO (08:19)
[2018-03-24] MEDS ORDERED: Megestrol Liq PO (08:19)
[2018-03-24] MEDS ORDERED: HALO2S PO (08:19)
[2018-03-24] MEDS ORDERED: ATOR40TA16 PO (08:19)
[2018-03-24] MEDS ORDERED: CLON.2T T-DERMAL (08:19)
[2018-03-24] MEDS ORDERED: ECASA81 PO (08:19)
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
[2018-03-24] MEDS: HALOPERIDOL LACTATE ORAL CONC 10 MG/5 ML CUP PO SCH (09:00)
[2018-03-24] MEDS: LISINOPRIL 10 MG TAB PO SCH (09:08)
[2018-03-24] MEDS: ASPIRIN EC 81 MG TABEC PO SCH (09:09)
[2018-03-24] MEDS: ATORVASTATIN 40 MG TAB PO SCH (09:09)
[2018-03-24] MEDS: MEGESTROL ACETATE SUSP 400 MG/10 ML CUP PO SCH (09:09)
[2018-03-24 09:18] LABS: BICARBONATE 22.5 MEQ/L (21.0-32.0); CALCIUM 9.4 MG/DL (8.5-10.1); CREATININE 1.05 MG/DL (0.60-1.30)
[2018-03-24] MEDS: ENOXAPARIN SODIUM 40 MG/0.4 ML SYRINGE SQ SCH (14:00)
[2018-03-27] MEDS ORDERED: REMOVE OLD CATAPRES (CLONIDINE) PATCH T-DERMAL SCH (09:00)
== END 2018-03-24 18:16 | disposition home or self-care (01) | DRG 57 ==
LOC: NEDAMB 11:57 → NEDA 17:01 → H250 18:33 → H4EA 03-13 14:10
PROVIDERS: ADMIT Psychiatry & Neurology Psychiatry; ATTEND Psychiatry & Neurology Psychiatry
DX: G30.1 Alzheimer's disease with late onset (principal); N17.9 Acute kidney failure, unspecified; F05 Delirium due to known physiological condition; N39.0 Urinary tract infection, site not specified; Z78.1 Physical restraint status; E11.9 Type 2 diabetes mellitus without complications; I10 Essential (primary) hypertension; D63.8 Anemia in other chronic diseases classified elsewhere; F02.81 Dementia in other diseases classified elsewhere, unspecified severity, with behavioral disturbance; E78.5 Hyperlipidemia, unspecified; I35.0 Nonrheumatic aortic (valve) stenosis; M51.26 Other intervertebral disc displacement, lumbar region; M48.061 Spinal stenosis, lumbar region without neurogenic claudication; E86.0 Dehydration; R32 Unspecified urinary incontinence; R15.9 Full incontinence of feces; W19.XXXA Unspecified fall, initial encounter; Z91.14 Patient's other noncompliance with medication regimen
CPT/HCPCS: 70450; 71045; 72125; 72128; 72131; 72170; 76937; 80048; 80053; 80061; 80307; 81001; 82948; 83036; 84443; 85025; 86592; 87077; 87086; 87186; 93005; 96372; J0696; J1200; J1630; J1650; J2060; J7030; Q0163